=== PATIENT | male | born 1970 | race Caucasian/White ===

== ENCOUNTER 2024-03-15 10:29 | Outpatient (OUT) | payer OTHER, SELFPAY ==
[2024-03-15 10:55] LABS: Basophils Absolute Auto 0.1 10^3/uL (0.0-0.1); Eosinophils Absolute Auto 0.3 10^3/uL (0.0-0.7); Eosinophils Percent Auto 3.3 % (0.9-7.0); Hematocrit 45.3 % (42.0-54.0); Hemoglobin 14.8 g/dL (14.0-18.0); Immature Granulocytes Abs Auto 0.05 10^3/uL (0.00-0.03); Immature Granulocytes Pct Auto 0.6 % (0.0-0.5); Lymphocytes Percent Auto 23.1 % (20.5-60.0); Mean Corpuscular HGB Conc 32.7 g/dL (29.9-35.2); Mean Corpuscular Hemoglobin 29.7 pg (25.9-34.0); Mean Platelet Volume 11.2 fL (9.5-13.5); Monocytes Absolute Auto 0.6 10^3/uL (0.3-0.8); Monocytes Percent Auto 7.1 % (1.7-12.0); Neutrophils Absolute Auto 5.6 10^3/uL (1.4-6.5); Neutrophils Percent Auto 64.9 % (43.0-75.0); Platelet Count 248 10^3/uL (150-450); Red Blood Count 4.98 10^6/uL (4.70-6.10); White Blood Count 8.6 10^3/uL (4.0-11.0)
[2024-03-15 11:25] LABS: Alanine Aminotransferase 43 U/L (16-63); Albumin Globulin Ratio 0.9; Albumin Level 3.8 g/dL (3.4-5.0); Alkaline Phosphatase 113 U/L (46-116); Anion Gap 12.3; Aspartate Amino Transferase 24 U/L (15-37); BUN Creatinine Ratio 11.2; Bilirubin Total 0.7 mg/dL (0.2-1.0); Calcium 8.9 mg/dL (8.5-10.1); Carbon Dioxide 27.6 mmol/L (21.0-32.0); Chloride 105 mmol/L (98-107); Chol HDL Ratio 2.6; Cholesterol 115 mg/dL (<=200); Estimated GFR (African America >60 (>=60); Estimated GFR (Non-African Ame >60 (>=60); Glucose 111 mg/dL (74-106); HDL Cholesterol 45 mg/dL (40-60); LDL Cholesterol Calculated 57.8 mg/dL; Potassium 3.9 mmol/L (3.5-5.1); Sodium 141 mmol/L (136-145); Total Protein 7.8 g/dL (6.4-8.2); Triglycerides 61 mg/dL (<=150); VLDL CHOLESTEROL 12.2 mg/dL
== END 2024-03-15 10:30 | disposition home or self-care (01) ==
LOC: LAB 10:33
PROVIDERS: PCP Internal Medicine; Visit Provider Nurse Practitioner Family
DX: E78.2 Mixed hyperlipidemia (principal); I25.10 Atherosclerotic heart disease of native coronary artery without angina pectoris
CPT/HCPCS: 36415; 80053; 80061; 85025

== ENCOUNTER 2024-05-19 10:00 | Outpatient (OUT) | payer MEDICAID, SELFPAY ==
--- OUTSIDE RECORDS SUMMARY | 2024-05-19 10:16 | XMS_ITS | CCD ---
Author Organization [facility] Care Team Providers Care Stock Clerk Name Role Phone Wilson Mendenhall Admitting Unavailable Michelle Lopez Primary Care Unavailable Lam Nice Attending Unavailable Tyson, Mallika Admitting Unavailable Tyson, Mallika Attending Unavailable Gómez Cohn Primary Care Unavailable TRAV JONES Primary Care Unavailable TRAV JONES Referring Unavailable ELTAHAWY, EHAB A Admitting Unavailable ELTAHAWY, EHAB A Attending Unavailable Maryan Charles Unavailable DOMINIC, CARLITOS Admitting Unavailable DOMINIC, CARLITOS Attending Unavailable FAWWAD, MONTERO H Primary Care Unavailable DOMINIC, CARLITOS Admitting Unavailable DOMINIC, CARLITOS Attending Unavailable FAWWAD, MONTERO H Primary Care Unavailable DOMINIC, CARLITOS Consulting Unavailable FAWWAD, MONTERO H Admitting Unavailable FAWWAD, MONTERO H Attending Unavailable FAWWAD, MONTERO H Primary Care Unavailable FAWWAD, MONTERO H Consulting Unavailable FAWWAD, MONTERO H Primary Care Unavailable NOAH ., NICOLE Admitting Unavailable NOAH ., NICOLE Attending Unavailable NOAH ., NICOLE Consulting Unavailable FAWWAD, MONTERO H Admitting Unavailable FAWWAD, MONTERO H Attending Unavailable FAWWAD, MONTERO H Primary Care Unavailable DOMINIC, CARLITOS Admitting Unavailable DOMINIC, CARLITOS Attending Unavailable FAWWAD, MONTERO H Primary Care Unavailable FAWWAD, MONTERO Attending Unavailable EDY DOCKERY Attending Unavailable FAMANDOD, MONTERO Referring Unavailable CB, MONTERO Attending Unavailable LEN ENG Attending Unavailable FAMANDOD, MONTERO Referring Unavailable TAI SCHMITT Attending Unavailable DO Len Eng Attending Provider MD Simón Pinedo Primary Care Provider [phone] Shaikh Pinedo Primary Care Unavailable Len Eng Attending Unavailable Len Eng Admitting Unavailable Allergies Allergy Classification Reported Allergen(s) Allergy Type Date of Onset Reaction(s) Facility (1 source) No Known Medication Allergies; Translations: [No Known Medication Allergies] Propensity to adverse reactions (disorder) [facility] Repository Medications Current Medications Medication Drug Class(es) Dates Sig (Normalized) Sig (Original) [id number] 200 actuat albuterol 0.09 mg/actuat metered dose inhaler (1 source) beta2-Adrenergic Agonist Start: 3 Proventil HFA 108 (90 Base) MCG/ACT 2 puffs as needed Inhalation every 4 -6hrs Apr, Active aspirin 81 mg chewable tablet (1 source) Platelet Aggregation Inhibitor, Nonsteroidal Anti-inflammatory Drug take 1 tablet by mouth once daily Aspirin Low Dose 81 MG chew 1 (ONE) TABLET and swallow DAILY Oral for 20 Days Active atorvastatin 40 mg oral tablet (1 source) HMG-CoA Reductase Inhibitor take 1 tablet by mouth once daily Atorvastatin Calcium 40 MG TAKE 1 TABLET BY MOUTH DAILY Oral for 30 Days Active azithromycin 250 mg oral tablet (1 source) Macrolide Antimicrobial Start: 2 Azithromycin 250 MG 2 tablet on the first day, then 1 tablet daily for 4 days Orally Once a day for 5 day(s) Aug, Active methylPREDNISolone 4 mg oral tablet (1 source) Corticosteroid Start: 2 methylPREDNISolone 4 MG as directed Orally for daily dose take half with breakfast, half with dinner for 6 days Aug, Active 24 hr metoprolol succinate 25 mg extended release oral tablet (1 source) beta-Adrenergic Beth Metoprolol Succinate ER 25 MG Oral for 30 Days Active montelukast 10 mg oral tablet (1 source) Leukotriene Receptor Antagonist take 1 tablet by mouth once daily Montelukast Sodium 10 MG TAKE 1 TABLET BY MOUTH EVERY DAY Oral for 30 Days Active Completed/Discontinued Medications Medication Drug Class(es) Dates Sig (Normalized) Sig (Original) Naproxen (1 source) Nonsteroidal Anti-inflammatory Drug Aleve Not-Taking Problems Active Problems Problem Classification Problem Date Documented Date Episodic/Chronic Chronic obstructive pulmonary disease and bronchiectasis (1 source) Chronic obstructive lung disease; Translations: [Chronic obstructive pulmonary disease, unspecified] Chronic Coronary atherosclerosis and other heart disease (6 sources) Atherosclerotic heart disease of [place] coronary artery without angina pectoris; Translations: [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] Onset: 12-01-2022 Chronic Disorders of lipid metabolism (2 sources) Mixed hyperlipidemia; Translations: [Mixed hyperlipidemia] Onset: 03-15-2024 Chronic Immunizations and screening for infectious disease (2 sources) Contact with and (suspected) exposure to other viral communicable diseases; Translations: [Contact with and (suspected) exposure to other viral communicable diseases] Episodic Other screening for suspected conditions (not mental disorders or infectious disease) (2 sources) Encounter for screening for lipoid disorders; Translations: [Encounter for screening for diabetes mellitus] Onset: 12-02-2022 Episodic Other upper respiratory infections (1 source) Acute maxillary sinusitis, unspecified Episodic Residual codes; unclassified (4 sources) Obstructive sleep apnea (adult) (pediatric); Translations: [OBSTRUCTIVE SLEEP APNEA] Onset: 01-06-2022 Chronic Past or Other Problems Problem Classification Problem Date Documented Da te Episodic/Chronic Inflammation; infection of eye (except that caused by tuberculosis or sexually transmitteddisease) (4 sources) Other mucopurulent conjunctivitis, right eye; Translations: [OTH MUCOPURULNT CONJUNCTIVIT RT EYE] Onset: 04-12-2022 Episodic Other aftercare (1 source) [facility] (current) use of aspirin; Translations: [[facility]I CURRENT USE OF ASPIRIN] Onset: 04-21-2022 Episodic Other aftercare (1 source) Other middle or intermediate school principal (current) drug therapy; Translations: [OTH [facility] CURRENT DRUG THERAPY] Onset: 04-21-2022 Episodic Results Test Name Value Interpretation Reference Range Facility Office Visiton 03-15-2024 Follow-up visit [id number] China Olsen 1970 M Date Provider Department Center 03/15/2024 TAI GALEANO CARD [facility] No family history on file Level of Service:43013 LA OFFICE/OUTPATIENT ESTABLISHED MOD MDM 30 MIN Reason for Visit and Comments: Pre-op Exam [888377] Coronary Artery Disease [187] Hypertension [323760] Hyperlipidemia [182] Normal [facility] Orders Onlyon 08-03-2023 Orders Only [id number] China Olsen 1970 M Date Provider Department Center 08/03/2023 Kishor-LUCY AGUIAR [facility] No family history on file Normal [facility] GLYCOHEMOGLOBIN A1Con 2022 ADA RECOMMENDATION SEE BELOW Normal [facility] Comment on above: Result Comment: ADA RECOMMENDED LIMIT 4.0 - 6.0 ADA THERAPEUTIC TARGET < 7.0 ACTION SUGGESTED > 7.0 Performed By: #### A 1C #### [facility] [address] [address] [address] Summer Rasmussen Glucose [Mass/Vol] 123 mg/dL Normal [facility] Comment on above: Performed By: #### A 1C #### [facility] [address] [place] [address] Dr. Summer Rasmussen HbA1c (Bld) [Mass fraction] 5.9 % Normal 4.5-6.2 [facility] Comment on above: Performed By: #### A 1C #### [facility] [address] [address] [address] Summer Rasmussen LIPID PROFILEon 12-01-2022 CHOL-HDL RATIO NORM SEE BELOW Normal [facility] Comment on above: Result Comment: 3.3 - 4.4 LOW RISK 4.4 - 7.1 AVERAGE RISK 7.1 - 11.0 MODERATE RISK >11.0 HIGH RISK Performed By: #### L IPID #### [facility] [address] [address] [address] uSmmer Rasmussen Cholesterol [Mass/Vol] 136 mg/dL Normal <=200 [facility] Comment on above: Performed By: #### L IPID #### [facility] [address] [address] [address] Summer Rasmussen Cholesterol in HDL [Mass/Vol] 51 mg/dL Normal 40-60 [facility] Comment on above: Performed By: #### L IPID #### [facility] [address] [address] [address] Summer Rasmussen Cholesterol in LDL [Mass/Vol] 67.4 mg/dL Normal [facility] Comment on above: Performed By: #### L IPID #### [facility] [address] [address] [address] Summer Rasmussen Cholesterol.total/Ch olesterol in HDL [Mass ratio] 2.7 {ratio} Normal [facility] Comment on above: Performed By: #### L IPID #### [facility] [address] [place] [address] Dr. Summer Rasmussen HDL NORMAL > or = 60 mg/dl - LOW CARDIOVASCULAR RISK <40 mg/dl - HIGH CARDIOVASCULAR RISK Normal [facility] Comment on above: Performed By: #### L IPID #### [facility] [address] [address] [address] Summer Rasmussen LDL CALC NORMAL SEE BELOW Normal [facility] Comment on above: Result Comment: <100 mg/dl OPTIMAL 100 - 129 mg/dl NEAR OR ABOVE OPTIMAL 130 - 159 mg/dl BORDERLINE HIGH 160 - 189 mg/dl HIGH >190 mg/dl VERY HIGH Performed By: #### L IPID #### [facility] [address] [place] [address] Dr. Summer Rasmussen Triglyceride [Mass/Vol] 88 mg/dL Normal <=150 [facility] Comment on above: Performed By: #### L IPID #### [facility] [address] [place] [address] Dr. Summer Rasmussen VLDL CALC 17.6 mg/dL Normal [facility] Comment on above: Performed By: #### L IPID #### [facility] [address] [place] [address] Dr. Summer Rasmussen LIVER PROFILEon 12-01-2022 Albumin [Mass/Vol] 3.9 g/dL Normal 3.4-5.0 [facility] Comment on above: Performed By: #### L IVER #### [facility] [address] [place] [address] Dr. Summer Rasmussen Albumin/Globulin [Mass ratio] 0.8 {ratio} Normal [facility] Comment on above: Performed By: #### L IVER #### [facility] [address] [place] [address] Dr. Summer Rasmussen ALP [Catalytic activity/Vol] 93 U/L Normal 46-116 [facility] Comment on above: Performed By: #### L IVER #### [facility] [address] [place] [address] Dr. Summer Rasmussen ALT [Catalytic activity/Vol] 52 U/L Normal 16-63 [facility] Comment on above: Performed By: #### L IVER #### [facility] [address] [address] [address] Summer Rasmussen AST [Catalytic activity/Vol] 33 U/L Normal 15-37 [facility] Comment on above: Performed By: #### L IVER #### [facility] [address] [place] [address] Dr. Summer Rasmussen BILI, CONJUGATED 0.1 mg/dL Normal 0.0-0.2 [facility] Comment on above: Performed By: #### L IVER #### [facility] [address] [place] [address] Dr. Summer Rasmussen Bilirubin [Mass/Vol] 0.6 mg/dL Normal 0.2-1.0 [facility] Comment on above: Performed By: #### L IVER #### [facility] [address] [place] [address] Dr. Summer Rasmussen Globulin (S) [Mass/Vol] 4.6 g/dL Normal [facility] Comment on above: Performed By: #### L IVER #### [facility] [address] [place] [address] Dr. Summer Rasmussen Protein [Mass/Vol] 8.5 g/dL Critically high 6.4-8.2 [facility] Comment on above: Performed By: #### L IVER #### [facility] [address] [place] [address] Dr. Summer Rasmussen COVID Quick Testingon 2021 Result Negative [facility] Other Quick Fluon 09-02-2022 FLUAV Ab CF (S) [Titer] Negative [facility] Other FLUBV Ab CF (S) [Titer] Negative [facility] Other Cardiovascular Lab Reporton 11-30-2021 Cardiovascular Lab Report [facility] Patient Name: China Olsen [facility] MR #: [id number] Physician: Li Department of MD Kathy [facility] Service Date: 11/28/2021 Division of Birthdate: 1970 Cardiology Room #: [facility] Cardiovascular Services [facility] [address] [facility] [place] [address] Cardiovascular Laboratory Report PROCEDURES PERFORMED: 1. Coronary angiography. 2. Left heart catheterization. FINAL IMPRESSIONS: 1. 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 2. 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 3. Otherwise, patent coronary arteries. RECOMMENDATIONS: 1. Aspirin 81 mg lifelong. 2. Aggressive risk factor modification. 3. Optimization of medical management for CAD: beta beth, aspirin, high intensity statin. 4. Initiation of beta beth for myocardial bridging. 5. Avoid nitrates due to bridging. 6. Followup with me in Clinic. 7. Followup with PCP as scheduled. PROCEDURE IN DETAIL: After risks, benefits, and alternatives were explained, written informed consent was obtained. The patient was prepped and draped in the usual sterile fashion. Using 1% lidocaine solution, local infiltration of anesthesia was achieved over the right radial artery. Using a micropuncture kit, access to the right radial artery was obtained. Coronary angiography was performed using the JR5 and JL3.5 catheters. After reviewing the images, it was elected to conclude the procedure. Overall, the patient tolerated the procedure well. There were no overt complications. He was to be transferred to Recovery in stable condition. FINDINGS: HEMODYNAMICS: AO 101/73 (87). LV 106/3 (8). CORONARY ARTERIES: Left main coronary artery: This rises from the left coronary cusp. It bifurcates into the left anterior descending and left circumflex coronary arteries. This is patent and without significant stenosis. Left anterior descending: There appears to be myocardial bridging in the mid portion of the vessel. There is 20% stenosis near the site of bridging. Otherwise, patent coronary artery without significant stenosis. Left circumflex coronary artery: Patent, no significant stenosis. Right coronary artery: This is a dominant vessel giving rise to the posterior descending and posterolateral branches. This is patent and without any significant stenosis. INDICATIONS: Unstable angina, abnormal stress test. Electronically Signed by: Li Chavez MD 12/17/2021 10:41 A Li Chavez MD Date Dict: 11/29/2021/04:44 P/Li Chavez MD Date Trans: 11/30/2021 06:39 A/lenin [id number] cc: Trav Jones MD [address] [facility] [address] Normal [facility] Coding Summary.on 09-22-2018 Coding Summary. CODING DATE: 09/22/2018 FINAL [facility] STATUS: Home (Routine DC) PAYOR: Medicaid ADMIT DX: REASON FOR VISIT DX: R06.02 Shortness of breath FINAL DX: PRINCIPAL: J01.00 Acute maxillary sinusitis, unspecified SECONDARY: F17.210 Nicotine dependence, cigarettes, uncomplicated PROCEDURES DOCTOR NAME DATE NOTE: The code number assigned matches the documented diagnosis and / or procedure in the patient's chart. However, the narrative phrase printed from the coding software may appear abbreviated, or result in slightly different terminology. Coded By: Meredith Santoyo Date Saved: 09/22/2018 11:16 am Normal [facility] ED Note-Physicianon 09-22-19 ED Note-Physician Basic Information Time Seen: Yuri Turner PA-C 09/21/2018 12:33 Chief Complaint pt has complaints of chest congestion productive cough and sinus pressure History of Present Illness 48-year-old male presents to the ED for evaluation of a sinus infection for the last 7-10 days. The patient states that he has a history of asthma but has not been able to take his inhaler because he ran out and does not have the money for 1. He states he does have insurance now it should cover it. He states that he has no chest pains. He is a little bit of shortness of breath with coughing and exertion. He has no nausea or vomiting. No diarrhea or constipation. Review of Systems All Organ systems are reviewed. Pertinent positive and negative findings as mentioned in the HPI Physical Exam Vitals & Measurements T: 37.1 ?C (Oral) HR: 88(Peripheral) RR: 18 BP: 135/84 SpO2: 97% HT: 188 cm WT: 130.4 kg BMI: 36.89 Nurses note and vital signs reviewed and patient is not hypoxic. General: The patient appears well and in no apparent distress. Patient is resting comfortably on cart. Skin: Warm, dry, no pallor noted. There is no rash noted. Head: Normocephalic, atraumatic Eye: Normal conjunctiva Ears, Nose, Mouth, and Throat: oral mucosa is mildly dry. There is bilateral TM bulging without erythema. I notice clear fluid in both TMs. No perforation. Postnasal drip noted with mild pharyngeal erythema without exudate. Nasal congestion with purulent drainage. Handles secretions well. Uvula midline. Pressure over the maxillary sinuses bilaterally with postnasal drip in the posterior oropharynx Cardiovascular: Regular Rate and Rhythm Respiratory: Patient is in no distress, no accessory muscle use, lungs are clear to auscultation, no wheezing, rales or rhonchi. He did have a wet sounding frequent cough. Back: non-tender, no CVA tenderness bilaterally to percussion. GI: Normal bowel sounds, no tenderness to palpation, no masses appreciated. No rebound, guarding, or rigidity noted. Musculoskeletal: The patient has no evidence of calf tenderness, no pitting edema, symmetrical pulses noted bilaterally Neurological: A&O x4, normal speech Psychiatric: Cooperative Medical Decision Making The patient is a take medications as prescribed. Follow with primary care in 3-5 days. Return back if symptoms change or worsen. Symptoms have been for 7-10 days and getting worse therefore will treat with antibiotics. Oral steroids given for the asthma and he is to return back if any worsening symptoms including chest pain or shortness of breath. Patient is discharged home without questions. Assessment/Plan Acute maxillary sinusitis Orders: albuterol, 1 puff(s), Inhalation, QID for wheezing, 18 gram, Refill(s) 0, [facility] benzonatate, 200 mg = 1 cap(s), Oral, TID, X 7 day(s), # 21 cap(s), Refills(s) 0 doxycycline, 100 mg = 1 tab(s), Oral, BID, X 7 day(s), # 14 tab(s), Refills(s) 0 methylPREDNISolone, = 1 packet(s), Oral, As Directed, as directed on package labeling, X 6 day(s), # 21 tab(s), Refills(s) 0 Disposition Plan Patient Discharge Condition Stable Discharge Disposition Discharged home Discharge Prescription List Prescriptions benzonatate 200 mg oral capsule, 200 mg= 1 cap(s), Oral, TID doxycycline monohydrate 100 mg oral tablet, 100 mg= 1 tab(s), Oral, BID Medrol Dosepack 4 mg Tab, 1 packet(s), Oral, As Directed Ventolin HFA 90 mcg/inh Aerosol, 1 puff(s), Inhalation, QID, PRN Follow-up With When Contact Information Gómez Cohn In 3 days 09/24/[address] [address] Business (1) Additional Instructions: Patient Education Sinusitis, Adult Attestation The patient's care was supervised by Dr. Mehta including history, physical, medical decision making, and disposition. Teaching-Supervisory Addendum-Brief I participated in the following activities of this patients care: the medical history. I personally performed: supervision of the patient's care, the medical history, the physical exam, the medical decision making. The case was discussed with: the physician billing and accounting staff assistant, Yuri Turner PA-C. Procedures: I directly supervised the entire procedure. Evaluation and management service: I agree with the evaluation and management decisions made in this patient's care. Results interpretation: I agree with the study interpretation in this patient's care, I agree with the documentation of the study interpretation. Problem List/Past Medical History Ongoing Smoker Historical Headache Procedure/Surgical History None. Medications Inpatient No active inpatient medications Home Antivert 25 mg Tab, 25 mg= 1 tab(s), Oral, TID, PRN benzonatate 200 mg oral capsule, 200 mg= 1 cap(s), Oral, TID doxycycline monohydrate 100 mg oral tablet, 100 mg= 1 tab(s), Oral, BID Medrol Dosepack 4 mg Tab, 1 packet(s), Oral, As Directed naproxen, Oral Ventolin HFA 90 mcg/inh Aerosol, 1 puff(s), Inhalation, QID, PRN Allergies No Known Medication Allergies Social History Alcohol - Denies Alcohol Use, 06/11/2018 Substance Abuse - Denies Substance Abuse, 06/11/2018 Tobacco - Medium Risk, 06/11/2018 5-9 cigarettes (between 1/4 to 1/2 pack)/day in last 30 days Tobacco Use:. Cigarettes, 09/21/2018 Cigarettes, 06/11/2018 Lab Results No qualifying data available. Diagnostic Results No qualifying data available. Normal [facility] Comment on above: Result Comment: Elec tronically Signed By: Yuri Turner PA-C\.br\Date and Time Signed: 09/21/18 13:43 EST\.br\Electronically Co-Signed By: Mallika Mehta DO\.br\Date and Time Co-Signed: 09/22/18 15:25 EST ED Clinical Summaryon 2018 ED Clinical Summary [place] [id number] ED Clinical Summary Person Information Name: CHINA OLSEN [facility] Age: 48 Years : 1970 12:00 AM Sex: Male Language: Burkinan PCP: Gómez Cohn III, DO Marital Status: Single Phone: [phone] Visit Id: Visit Reason: Cough; Sinus Pain/Congestion; Rhinorrhoea; headache, drainage, chest congetion Speciality: Acuity: 4 Enc Type: Emergency Med Service: Emergency Arrival: 09/21/2018 12:06 PM Discharge: 09/21/2018 1:33 PM LOS: 000 01:27 Checkin: 09/21/2018 12:06 PM Checkout: 09/21/2018 1:33 PM Dispo Type: Home (Routine DC) EVENTS: Event Name Event Status Request Date/Time Start Date/Time Complete Date/Time Arrive Complete 09/21/2018 12:06 PM 09/21/2018 12:06 PM 09/21/2018 12:06 PM Document Home Meds Request 09/21/2018 12:06 PM Triage Complete 09/21/2018 12:06 PM 09/21/2018 12:19 PM 09/21/2018 12:19 PM Bed Assign Complete 09/21/2018 12:19 PM 09/21/2018 12:19 PM 09/21/2018 12:[address] Exam Complete 09/21/2018 12:19 PM 09/21/2018 12:33 PM 09/21/2018 12:33 PM RN Exam Complete 09/21/2018 12:19 PM 09/21/2018 12:46 PM 09/21/2018 12:46 PM Registration Complete 09/21/2018 12:33 PM 09/21/2018 12:53 PM 09/21/2018 12:[address] Exam Complete 09/21/2018 12:35 PM 09/21/2018 12:35 PM 09/21/2018 12:35 PM Reg Complete Request 09/21/2018 12:53 PM Discharge Complete 09/21/2018 1:23 PM 09/21/2018 1:33 PM 09/21/2018 1:33 PM Transfer Complete 09/21/2018 1:33 PM 09/21/2018 1:33 PM 09/21/2018 1:33 PM ADDRESS: [address] [place] [id number] PHYS DOC NOTES: MEDICAL INFORMATION: Prescriptions Given: Prescription Display benzonatate (benzonatate 200 mg oral capsule) 200 mg = 1 cap(s), Oral, TID, X 7 day(s), # 21 cap(s), Refills(s) 0 doxycycline (doxycycline monohydrate 100 mg oral tablet) 100 mg = 1 tab(s), Oral, BID, X 7 day(s), # 14 tab(s), Refills(s) 0 methylPREDNISolone (Medrol Dosepack 4 mg Tab) = 1 packet(s), Oral, As Directed, as directed on package labeling, X 6 day(s), # 21 tab(s), Refills(s) 0 PATIENT EDUCATION INFORMATION: Instructions: Sinusitis, Adult Follow up: With: Address: When: Gómez Cohn [address] [place] [address], [facility], [place] [address] Business (8) In 3 days 09/24/2018 DIAGNOSIS: Acute maxillary sinusitis Normal [facility] ED Patient Education Noteon 09-21-2018 ED Patient Education Note Allergy Sinusitis Sinusitis is redness, soreness, and inflammation of the paranasal sinuses. Paranasal sinuses are air pockets within the bones of your face (beneath the eyes, the middle of the forehead, or above the eyes). In healthy paranasal sinuses, mucus is able to drain out, and air is able to circulate through them by way of your nose. However, when your paranasal sinuses are inflamed, mucus and air can become trapped. This can allow bacteria and other germs to grow and cause infection. Sinusitis can develop quickly and last only a short time (acute) or continue over a long period (chronic). Sinusitis that lasts for more than 12 weeks is considered chronic. CAUSES Causes of sinusitis include: ? Allergies. ? Structural abnormalities, such as displacement of the cartilage that separates your nostrils (deviated septum), which can decrease the air flow through your nose and sinuses and affect sinus drainage. ? Functional abnormalities, such as when the small hairs (cilia) that line your sinuses and help remove mucus do not work properly or are not present. SIGNS AND SYMPTOMS Symptoms of acute and chronic sinusitis are the same. The primary symptoms are pain and pressure around the affected sinuses. Other symptoms include: ? Upper toothache. ? Earache. ? Headache. ? Bad breath. ? Decreased sense of smell and taste. ? A cough, which worsens when you are lying flat. ? Fatigue. ? Fever. ? Thick drainage from your nose, which often is green and may contain pus (purulent). ? Swelling and warmth over the affected sinuses. DIAGNOSIS Your health care provider will perform a physical exam. During the exam, your health care provider may: ? Look in your nose for signs of abnormal growths in your nostrils (nasal polyps). ? Tap over the affected sinus to check for signs of infection. ? View the inside of your sinuses (endoscopy) using an imaging device that has a light attached (endoscope). If your health care provider suspects that you have chronic sinusitis, one or more of the following tests may be recommended: ? Allergy tests. ? Nasal culture. A sample of mucus is taken from your nose, sent to a lab, and screened for bacteria. ? Nasal cytology. A sample of mucus is taken from your nose and examined by your health care provider to determine if your sinusitis is related to an allergy. TREATMENT Most cases of acute sinusitis are related to a viral infection and will resolve on their own within 10 days. Sometimes medicines are prescribed to help relieve symptoms (pain medicine, decongestants, nasal steroid sprays, or saline sprays). However, for sinusitis related to a bacterial infection, your health care provider will prescribe antibiotic medicines. These are medicines that will help kill the bacteria causing the infection. Rarely, sinusitis is caused by a fungal infection. In theses cases, your health care provider will prescribe antifungal medicine. For some cases of chronic sinusitis, surgery is needed. Generally, these are cases in which sinusitis recurs more than 3 times per year, despite other treatments. HOME CARE INSTRUCTIONS ? Drink plenty of water. Water helps thin the mucus so your sinuses can drain more easily. ? Use a humidifier. ? Inhale steam 3 to 4 times a day (for example, sit in the bathroom with the shower running). ? Apply a warm, moist washcloth to your face 3 to 4 times a day, or as directed by your health care provider. ? Use saline nasal sprays to help moisten and clean your sinuses. ? Take medicines only as directed by your health care provider. ? If you were prescribed either an antibiotic or antifungal medicine, finish it all even if you start to feel better. SEEK IMMEDIATE MEDICAL CARE IF: ? You have increasing pain or severe headaches. ? You have nausea, vomiting, or drowsiness. ? You have swelling around your face. ? You have vision problems. ? You have a stiff neck. ? You have difficulty breathing. MAKE SURE YOU: ? Understand these instructions. ? Will watch your condition. ? Will get help right away if you are not doing well or get worse. Document Released: 09/07/2006 Document Revised: 01/22/2015 Document Reviewed: 09/21/2012 ExitCare? Patient Information ?2015 [employer]. This information is not intended to replace advice given to you by your health care provider. Make sure you discuss any questions you have with your health care provider. Normal [facility] ED Patient Summaryon 019 ED Patient Summary [place] [id number] Patient Discharge Instructions Person Information Name: CHINA OLSEN Age: 48 Years Arrival Date: 09/21/2018 12:06 PM Discharge Diagnosis: Acute maxillary sinusitis Primary Care Physician: Gómez Cohn III, DO Provider Information Primary Provider: Mallika Mehta DO Advanced Instructor Of Spanish:Yuri Turner PA-C The exam and treatment you received in the Emergency Department were for an urgent problem and are not intended as complete care. It is important that you follow up with a doctor, nurse practitioner, or physician?s billing and accounting staff assistant for ongoing care. If your symptoms become worse or you do not improve as expected and you are unable to reach your usual health care provider, you should return to the Emergency Department. We are available 24 hours a day. CHINA OLSEN has been given the following list of patient education materials, prescriptions and follow-up instructions: Follow-up Instructions: With: Address: When: Gómez Cohn [address] [place] [id number] [facility] () In 3 days 09/24/2018 In the event that this physician does not participate in your insurance network, please consult with your insurance company to find a nearby participating provider. Patient Education Materials: Sinusitis, Adult A MESSAGE TO ALL PATIENTS REGARDING OPIOIDS PRESCRIPTION OPIOIDS: WHAT YOU NEED TO KNOW Prescription opioids can be used to help relieve oxwgnzpo-nj-msytlz pain and are often prescribed following a surgery or injury, or for certain health conditions. These medications can be an important part of the treatment but also come with serious risks. It is important to work with your healthcare provider to make sure you are getting the safest, most effective care. WHAT ARE THE RISKS AND SIDE EFFECTS OF OPIOID USE? Prescription opioids carry serious risks of addiction and overdose, especially with prolonged use. An opioid overdose, often marked by slowed breathing, can cause sudden . The use of prescription opioids can have a number of side effects as well, even when taken as directed: ? Tolerance?meaning you might need to take more of the medication for the same pain relief ? Physical dependence?meaning you have symptoms of withdrawal when a medication is stopped ? Increased sensitivity to pain ? Constipation ? Nausea, vomiting, and dry mouth ? Sleepiness and dizziness ? Confusion ? Depression ? Low levels of testosterone that can result in lower sex drive, energy, and strength ? Itching and sweating RISKS ARE GREATER WITH: ? History of drug misuse, substance use disorder, or overdose ? Mental health conditions (such as depression or anxiety) ? Sleep apnea ? Older age (65 years and older) ? Avoid alcohol while taking prescription opioids. Also, unless specifically advised by your health care provider, medications to avoid include: ? Benzodiazepines (such as Xanax or Valium) ? Muscle relaxants (such as Soma or Flexeril) ? Hypnotics (such as Ambien or Lunesta) ? Other prescription opioids KNOW YOUR OPTIONS Talk to your health care provider about ways to manage your pain that don?t involve prescription opioids. Some of these options may actually work better and have fewer risks and side effects. Options may include: ? Pain relievers such as acetaminophen, ibuprofen, and naproxen ? Some medication that are also used for depression or seizures ? Physical therapy and exercise ? Cognitive behavioral therapy, a psychological, goal-directed approach, in which patients learn how to modify physical, behavioral, and emotional triggers of pain and stress. IF YOU ARE PRESCRIBED OPIOIDS FOR PAIN: ? Never take opioids in greater amounts or more often than prescribed. ? Follow up with your primary health care provider. o Work together to create a plan on how to manage your pain. o Talk about ways to help manage your pain that don?t involve prescription opioids. o Talk about any and all concerns and side effects. ? Help prevent misuse and abuse o Never sell or share prescription opioids. o Never use another person?s prescription opioids. ? Store prescription opioids in a secure place and out of reach of others (this may include visitors, children, friends, and family). ? Safely dispose of unused prescription opioids: Find your community drug take-back program or your pharmacy mail-back program, or flush them down the toilet, following guidance from the Food and Drug Administration (www.fda.gov/Drugs/R esourcesForYou). ? Visit www.cdc.gov/drugover dose to learn about the risks of opioids abuse and overdose. ? If you believe you may be struggling with addiction, tell your health care provider and ask for guidance or call SAMHSA?S National Helpline at 1-802-218-OKGY. v Source: [place] Department of Health and Human Services/Center for Disease Control & Prevention [facility] Medications Given: Medication Dose Route No medications found. Medication Information: New Medications Printed Prescriptions benzonatate (benzonatate 200 mg oral capsule) 1 Capsules By Mouth 3 times a day for 7 Days. Refills: 0. doxycycline (doxycycline monohydrate 100 mg oral tablet) 1 Tabs By Mouth 2 times a day for 7 Days. Refills: 0. methylPREDNISolone (Medrol Dosepack 4 mg Tab) 1 Packets By Mouth As Directed for 6 Days. as directed on package labeling. Refills: 0. Medications to Continue with No Changes Other Medications meclizine (Antivert 25 mg Tab) 1 Tabs By Mouth 3 times a day as needed for dizziness. Refills: 0. naproxen By Mouth. Comment: Pharmacy Information: Thank you for choosing [facility] Patient Education Materials: Sinusitis Sinusitis is redness, soreness, and inflammation of the paranasal sinuses. Paranasal sinuses are air pockets within the bones of your face (beneath the eyes, the middle of the forehead, or above the eyes). In healthy paranasal sinuses, mucus is able to drain out, and air is able to circulate through them by way of your nose. However, when your paranasal sinuses are inflamed, mucus and air can become trapped. This can allow bacteria and other germs to grow and cause infection. Sinusitis can develop quickly and last only a short time (acute) or continue over a long period (chronic). Sinusitis that lasts for more than 12 weeks is considered chronic. CAUSES Causes of sinusitis include: ? Allergies. ? Structural abnormalities, such as displacement of the cartilage that separates your nostrils (deviated septum), which can decrease the air flow through your nose and sinuses and affect sinus drainage. ? Functional abnormalities, such as when the small hairs (cilia) that line your sinuses and help remove mucus do not work properly or are not present. SIGNS AND SYMPTOMS Symptoms of acute and chronic sinusitis are the same. The primary symptoms are pain and pressure around the affected sinuses. Other symptoms include: ? Upper toothache. ? Earache. ? Headache. ? Bad breath. ? Decreased sense of smell and taste. ? A cough, which worsens when you are lying flat. ? Fatigue. ? Fever. ? Thick drainage from your nose, which often is green and may contain pus (purulent). ? Swelling and warmth over the affected sinuses. DIAGNOSIS Your health care provider will perform a physical exam. During the exam, your health care provider may: ? Look in your nose for signs of abnormal growths in your nostrils (nasal polyps). ? Tap over the affected sinus to check for signs of infection. ? View the inside of your sinuses (endoscopy) using an imaging device that has a light attached (endoscope). If your health care provider suspects that you have chronic sinusitis, one or more of the following tests may be recommended: ? Allergy tests. ? Nasal culture. A sample of mucus is taken from your nose, sent to a lab, and screened for bacteria. ? Nasal cytology. A sample of mucus is taken from your nose and examined by your health care provider to determine if your sinusitis is related to an allergy. TREATMENT Most cases of acute sinusitis are related to a viral infection and will resolve on their own within 10 days. Sometimes medicines are prescribed to help relieve symptoms (pain medicine, decongestants, nasal steroid sprays, or saline sprays). However, for sinusitis related to a bacterial infection, your health care provider will prescribe antibiotic medicines. These are medicines that will help kill the bacteria causing the infection. Rarely, sinusitis is caused by a fungal infection. In theses cases, your health care provider will prescribe antifungal medicine. For some cases of chronic sinusitis, surgery is needed. Generally, these are cases in which sinusitis recurs more than 3 times per year, despite other treatments. HOME CARE INSTRUCTIONS ? Drink plenty of water. Water helps thin the mucus so your sinuses can drain more easily. ? Use a humidifier. ? Inhale steam 3 to 4 times a day (for example, sit in the bathroom with the shower running). ? Apply a warm, moist washcloth to your face 3 to 4 times a day, or as directed by your health care provider. ? Use saline nasal sprays to help moisten and clean your sinuses. ? Take medicines only as directed by your health care provider. ? If you were prescribed either an antibiotic or antifungal medicine, finish it all even if you start to feel better. SEEK IMMEDIATE MEDICAL CARE IF: ? You have increasing pain or severe headaches. ? You have nausea, vomiting, or drowsiness. ? You have swelling around your face. ? You have vision problems. ? You have a stiff neck. ? You have difficulty breathing. MAKE SURE YOU: ? Understand these instructions. ? Will watch your condition. ? Will get help right away if you are not doing well or get worse. Document Released: 09/07/2006 Document Revised: 01/22/2015 Document Reviewed: 09/21/2012 ExitCare? Patient Information ?2014 [employer]. This information is not intended to replace advice given to you by your health care provider. Make sure you discuss any questions you have with your health care provider. PRETTY Minor CHRISTOPHER D , have received the following patient education materials/instructio ns and have verbalized understanding: Patient Education Materials: Sinusitis, Adult Follow-up Instructions: With: Address: When: Gómez Cohn [address] [place] [address], [place] [address] [facility] () In 3 days 09/24/2018 Prescriptions: [benzonatate (benzonatate 200 mg oral capsule)] [doxycycline (doxycycline monohydrate 100 mg oral tablet)] [methylPREDNISolone (Medrol Dosepack 4 mg Tab)] Patient Signature Date Clinician/Nurse Signature Date 09/21/18 13:33:41 Normal [facility] Coding Summary.on 06-14-2018 Coding Summary. CODING DATE: 06/14/2018 FINAL [facility] STATUS: Home (Routine DC) PAYOR: Self Pay APC DESCRIPTION 5023 CT and CTA with Contrast Composite 6846 Level 1 Imaging without Contrast 0547 Level 5 Type A ED Visits ADMIT DX: REASON FOR VISIT DX: R42 Dizziness and giddiness FINAL DX: PRINCIPAL: H81.10 Benign paroxysmal vertigo, unspecified ear SECONDARY: PYMT PROC APC STAT DESCRIPTION DOCTOR NAME DATE NOTE: The code number assigned matches the documented diagnosis and / or procedure in the patient's chart. However, the narrative phrase printed from the coding software may appear abbreviated, or result in slightly different terminology. Revised Coded By: Isabel Kim Revised Date Saved: 06/14/2018 08:59 am Normal [facility] Auto Diffon 06-11-2018 Basophils #/vol (Bld) 1.1 % Normal 0.0-2.0 [facility] Comment on above: Order Comment: Order Added by Discern Expert. Performed By: #### 2 003832, 0571788, 2434561, 75361331, 2786092, 38791623, [id number] #### [facility] [address] [place] [address] Basophils/Leukocytes Auto Pure number fraction (Bld) 0.1 E9/L Normal 0.0-0.2 [facility] Comment on above: Order Comment: Order Added by Discern Expert. Performed By: #### 2 253378, 1076908, 4689493, 17962936, 7802985, 46034807, 85811372 #### [facility] [address] [place] [address] Eosinophils/100 WBC (Bld) 5.2 % Normal 0.0-8.0 [facility] Comment on above: Order Comment: Order Added by Discern Expert. Performed By: #### 2 658806, 1745702, 8598081, 08449338, 7468425, 17821779, 24886429 #### [facility] [address] [place] [address] Eosinophils/Leukocyt es Auto Pure number fraction (Bld) 0.4 E9/L Normal 0.0-0.5 [facility] Comment on above: Order Comment: Order Added by Discern Expert. Performed By: #### 2 077540, 4672322, 0493869, 53842258, 1498430, 31506543, 31379719 #### [facility] [address] [place] [address] Lymphocytes/100 WBC (Bld) 27.8 % Normal 14.0-50.0 [facility] Comment on above: Order Comment: Order Added by Discern Expert. Performed By: #### 2 448472, 3217000, 5881822, 12016514, 6599793, 68345640, 64574167 #### [facility] [address] [place] [address] Lymphocytes/Leukocyt es Auto Pure number fraction (Bld) 2.4 E9/L Normal 1.0-4.0 [facility] Comment on above: Order Comment: Order Added by Discern Expert. Performed By: #### 2 655520, 7382005, 4692744, 42549701, 7511165, 69517657, 23077014 #### [facility] [address] [place] [address] Monocytes/100 WBC (Bld) 8.2 % Normal 4.0-14.0 [facility] Comment on above: Order Comment: Order Added by Discern Expert. Performed By: #### 2 352191, 6424931, 6384945, 80981576, 4242049, 82834298, 90968050 #### [facility] [address] [place] [address] Monocytes/Leukocytes Auto Pure number fraction (Bld) 0.7 E9/L Normal 0.2-1.0 [facility] Comment on above: Order Comment: Order Added by Discern Expert. Performed By: #### 2 738753, 5162325, 6026140, 14913475, 8498781, 80179760, 91161499 #### [facility] [address] [place] [address] Neutrophils/100 WBC (Bld) 57.7 % Normal 36.0-75.0 [facility] Comment on above: Order Comment: Order Added by Discern Expert. Performed By: #### 2 763074, 5278927, 6487663, 39019862, 8110674, 25193201, 09933551 #### [facility] [address] [place] [address] Neutrophils/Leukocyt es Auto Pure number fraction (Bld) 4.9 E9/L Normal 2.0-7.5 [facility] Comment on above: Order Comment: Order Added by Discern Expert. Performed By: #### 2 749191, 0832308, 8160435, 50928122, 2401451, 10891299, 80566617 #### [facility] [address] [place] [address] BNPon 06-11-2018 Natriuretic peptide B mass conc (Bld) 15 pg/mL Normal 5-80 [facility] Comment on above: Performed By: #### 2 977447, 0487741, 5774041, 94966734, 5222838, 28056175, 10896678 #### [facility] [address] [place] [address] CBC w/ Auto Diffon 8 Erythrocyte distribution width Ratio (RBC) 13.5 % Normal 10.9-14.2 [facility] Comment on above: Performed By: #### 2 292880, 2557093, 9280770, 48949190, 6361593, 38427813, 71828587 #### [facility] [address] [place] [address] Hematocrit Volume Fraction (Bld) 43.5 % Normal 37.7-49.0 [facility] Comment on above: Performed By: #### 2 335943, 8968062, 3741784, 64987983, 6762148, 05655975, 44283184 #### [facility] [address] [place] [address] Hemoglobin mass conc (Bld) 15.3 g/dL Normal 13.5-17.5 [facility] Comment on above: Performed By: #### 2 874794, 2034619, 2320590, 21170944, 0573643, 44660117, 36225745 #### [facility] [address] [place] [address] MCH Entitic mass (RBC) 30.6 pg Normal 27.0-34.0 [facility] Comment on above: Performed By: #### 2 265768, 1668382, 8246665, 91883700, 0317722, 72960298, 55024317 #### [facility] [address] [place] [address] MCHC mass conc (RBC) 35.2 g/dL Normal 31.4-39.3 [facility] Comment on above: Performed By: #### 2 078707, 5418608, 0938137, 13556810, 2898973, 27180790, 46080965 #### [facility] [address] [place] [address] MCV Entitic volume (RBC) 87.0 fL Normal 80.0-100.0 [facility] Comment on above: Performed By: #### 2 091055, 1680033, 3443269, 57565495, 1533229, 43121706, 20353906 #### [facility] [address] [place] [address] Platelet mean volume Entitic volume (Bld) 9.2 fL Normal 6.4-10.8 [facility] Comment on above: Performed By: #### 2 471449, 5788875, 4869271, 23871798, 8342774, 96361010, 63757453 #### [facility] [address] [place] 0350557 Platelets #/vol (Bld) 205.0 E9/L Normal 150.0-500.0 [facility] Comment on above: Performed By: #### 2 522716, 7085264, 7606149, 75298565, 7477143, 97079033, 18897914 #### [facility] [address] [place] [address]350557 RBC #/vol (Bld) 5.0 E12/L Normal 4.3-5.9 [facility] Comment on above: Performed By: #### 2 405435, 1436827, 5363253, 21147410, 6647585, 91149163, 44287644 #### [facility] [address] [place] [address]350557 WBC corrected for nucl RBC Auto #/vol (Bld) 8.5 E9/L Normal 4.0-11.0 [facility] Comment on above: Performed By: #### 2 777223, 7426154, 4296597, 30754481, 6391301, 64891306, 22640485 #### [facility] [address] [place] [address] CMPon 06-11-2018 Albumin mass conc 4.1 g/dL Normal 3.3-5.0 [facility] Comment on above: Performed By: #### 2 387317, 5554499, 0097448, 74453597, 9377427, 00625004, 35470070 #### [facility] [address] [place] [address] Albumin mass conc 1.4 g/dL Normal 1.1-2.2 [facility] Comment on above: Performed By: #### 2 415401, 9912697, 5564739, 66792190, 1721638, 39161782, 30954886 #### [facility] [address] [place] [address] ALP enzyme act/vol 69 Int._Unit/L Normal 21-98 [facility] Comment on above: Performed By: #### 2 551062, 4114307, 8446149, 36136772, 0915463, 10660766, 90931063 #### [facility] [address] [place] [address] ALT No additional P-5'-P enzyme act/vol 39 Int._Unit/L Normal 6-46 [facility] Comment on above: Performed By: #### 2 270890, 9490106, 1561694, 49314480, 9557973, 76439044, 34034767 #### [facility] [address] [place] [address] AST enzyme act/vol 29 Int._Unit/L Normal 5-43 [facility] Comment on above: Performed By: #### 2 388379, 5399605, 9192846, 72675005, 6045509, 18767871, 79677961 #### [facility] [address] [place] [address] Bilirubin mass conc 0.7 mg/dL Normal 0.0-1.1 [facility] Comment on above: Performed By: #### 2 956825, 1468400, 6193863, 21864538, 0022842, 46752474, 88620504 #### [facility] [address] [place] [address] Creatinine mass conc 0.7 mg/dL Normal 0.5-1.3 [facility] Comment on above: Performed By: #### 2 218608, 1196611, 2555136, 66443703, 4281111, 80050354, 31819689 #### [facility] [address] [place] [address] Globulin mass conc (S) 3.0 g/dL Normal 1.4-4.0 [facility] Comment on above: Performed By: #### 2 803356, 5983630, 4020316, 21484830, 8910991, 14490398, 18991137 #### [facility] [address] [place] [address] Protein mass conc 7.1 g/dL Normal 6.0-7.8 [facility] Comment on above: Performed By: #### 2 033811, 7871527, 0524729, 69954643, 3129509, 65599205, 87541081 #### [facility] [address] [place] [address] Urea nitrogen mass conc 12 mg/dL Normal 5-21 [facility] Comment on above: Performed By: #### 2 414459, 1479444, 7641322, 54096887, 4442754, [id number], [id number] #### [facility] [address] [place] [address] Urea nitrogen/Creatinine mass ratio 17 No Units Normal 10-20 [facility] Comment on above: Performed By: #### 2 [id number], [id number], [id number], [id number], [id number], [id number], [id number] #### [facility] [address] [place] [address] Anion gap molar conc 9 mmol/L Normal 6-16 [facility] Comment on above: Performed By: #### 2 490909, 2402485, 0679148, [id number], [id number], [id number], [id number] #### [facility] [address] [place] [address] Calcium mass conc 8.9 mg/dL Normal 8.9-11.1 [facility] Comment on above: Performed By: #### 2 379853, [id number], 8623302, [id number], 4312258, [id number], [id number] #### [facility] [address] [place] [address] Chloride molar conc 109 mmol/L Normal 101-111 [facility] Comment on above: Performed By: #### 2 492429, [id number], 5235863, [id number], [id number], [id number], [id number] #### [facility] [address] [place] [address] CO2 molar conc 25 mmol/L Normal 21-31 [facility] Comment on above: Performed By: #### 2 713944, 3036037, 2361103, [id number], 7175535, [id number], [id number] #### [facility] [address] [place] [address] Glucose mass conc 102 mg/dL Normal 55-199 [facility] Comment on above: Result Comment: If t his glucose result represents a fasting glucose, interpretation should refer to the following reference range: 55-99 mg/dL Performed By: #### 2 505582, 9811205, 0872658, 12973117, 8701139, [id number], [id number] #### [facility] [address] [place] [address] Potassium molar conc 3.5 mmol/L Normal 3.5-5.3 [facility] Comment on above: Performed By: #### 2 535297, 2592634, 8399846, [id number], 1490671, [id number], [id number] #### [facility] [address] [place] [address] Sodium molar conc 139 mmol/L Normal 135-145 [facility] Comment on above: Performed By: #### 2 298665, 3812603, 7990196, 26214202, 5507500, [id number], [id number] #### [facility] [address] [place] [address] CTA Headon 06-11-2018 CTA Head Exam Date/Time: 06/11/2018 07:01 EDT Reason for Exam: Cerebral vascular disease Report Please see CTA neck report FINAL REPORT Dictated: 06/11/2018 9:45 am Addy Licea MD Signed (Electronic Signature): 06/11/2018 9:45 am Signed by: Addy Licea MD Transcribed by: ARTIE Technologist: HUSSEIN Technical Comments GFR (mL/min/1/73m2) na Contrast: Isovue 370 Contrast amount in ml's: 100 Normal [facility] CTA Neckon 06-11-2018 CTA Neck Exam Date/Time: 06/11/2018 07:01 EDT Reason for Exam: Vascular insufficiency Report IMPRESSION: NEGATIVE STUDY. NO EVIDENCE OF SIGNIFICANT STENOSIS. NO ACUTE PROCESS IN THE BRAIN. CLINICAL HISTORY: Vascular insufficiency. Dizziness. Headache posteriorly. COMPARISON: None. COMMENT: Axial images were obtained after the rapid injection of IV contrast with narrow collimation and reconstructed at a narrow interval. Coronal and sagittal reconstructions were performed. On the PACS, images were reviewed in cine display. 3D MIP postprocessed images were obtained.\X09\ The common carotid arteries, carotid bifurcations, and internal and external carotid arteries in the neck bilaterally are normal in appearance. The right and left subclavian arteries are normal. The vertebral arteries are normal in appearance. There is no evidence of signigicant stenosis. No acute process in the brain. Incidental note made of inflammation in the right ethmoid air cells. There is a scalp inclusion cyst overlying the right frontal bone. Degenerative changes overlie the cervical spine. All CT scans at this facility use dose modulation, iterative reconstruction, and/or weight based dosing when appropriate to reduce radiation dose to as low as reasonably achievable. Estimation of carotid stenosis is based on NASCET criteria. FINAL REPORT Dictated: 06/11/2018 9:44 am Addy Licea MD Signed (Electronic Signature): 06/11/2018 9:44 am Signed by: Addy Licea MD Transcribed by: ARTIE Technologist: HUSSEIN Technical Comments GFR (mL/min/1/73m2) >60 Contrast: Isovue 370 Contrast amount in ml's: 100 Normal [facility] ED Clinical Summaryon 2017 ED Clinical Summary [place] [address] ED Clinical Summary Person Information Name: CHINA OLSEN Raysa/[facility] Age: 47 Years : 1970 12:00 AM Sex: Male Language: Burkinan PCP: Michelle Lopez DO Marital Status: Single Visit Id: Visit Reason: Nausea; Neck pain; Dizziness; TROUBLE BREATHING Speciality: Acuity: 3 Enc Type: Emergency Med Service: Emergency Arrival: 06/11/2018 5:58 AM Discharge: 06/11/2018 8:08 AM LOS: 000 02:10 Checkin: 06/11/2018 5:58 AM Checkout: 06/11/2018 8:08 AM Dispo Type: Home (Routine DC) EVENTS: Event Name Event Status Request Date/Time Start Date/Time Complete Date/Time Arrive Complete 06/11/2018 5:58 AM 06/11/2018 5:58 AM 06/11/2018 5:58 AM Document Home Meds Complete 06/11/2018 5:58 AM 06/11/2018 6:34 AM 06/11/2018 6:34 AM Triage Complete 06/11/2018 5:58 AM 06/11/2018 6:06 AM 06/11/2018 6:[address] Exam Complete 06/11/2018 6:01 AM 06/11/2018 6:01 AM 06/11/2018 6:01 AM Registration Complete 06/11/2018 6:01 AM 06/11/2018 6:01 AM 06/11/2018 7:14 AM Bed Assign Complete 06/11/2018 6:01 AM 06/11/2018 6:01 AM 06/11/2018 6:01 AM RN Exam Complete 06/11/2018 6:01 AM 06/11/2018 6:34 AM 06/11/2018 6:34 AM EKG Complete 06/11/2018 6:05 AM 06/11/2018 6:13 AM Pending Labs Complete 06/11/2018 6:09 AM 06/11/2018 7:05 AM Lab Complete 06/11/2018 6:09 AM 06/11/2018 6:59 AM X-Ray Complete 06/11/2018 6:09 AM 06/11/2018 7:01 AM 06/11/2018 7:[address] Complete 06/11/2018 6:09 AM 06/11/2018 6:42 AM 06/11/2018 7:01 AM Pending Labs Complete 06/11/2018 6:30 AM 06/11/2018 6:30 AM 06/11/2018 6:59 AM Lab Complete 06/11/2018 6:30 AM 06/11/2018 6:30 AM 06/11/2018 6:59 AM Pending Labs Complete 06/11/2018 6:34 AM 06/11/2018 6:34 AM 06/11/2018 6:34 AM Pending Labs Complete 06/11/2018 6:34 AM 06/11/2018 6:34 AM 06/11/2018 6:34 AM Lab Complete 06/11/2018 6:34 AM 06/11/2018 6:34 AM 06/11/2018 6:34 AM Pending Labs Complete 06/11/2018 6:35 AM 06/11/2018 6:35 AM 06/11/2018 6:35 AM Wet Read Request 06/11/2018 7:02 AM Reg Complete Request 06/11/2018 7:14 AM Discharge Complete 06/11/2018 7:54 AM 06/11/2018 8:09 AM 06/11/2018 8:09 AM Transfer Complete 06/11/2018 8:09 AM 06/11/2018 8:09 AM 06/11/2018 8:09 AM ADDRESS: [address] [place] [address] [address] [place] [id number] PHYS DOC NOTES: Addendum by Lam Nice MD on June 11, 2018 07:49:04 EDT MEDICAL INFORMATION: Prescriptions Given: Prescription Display meclizine (Antivert 25 mg Tab) 25 mg = 1 tab(s), Oral, TID, PRN for dizziness, # 15 tab(s), Refills(s) 0 Home Meds Display naproxen Oral, Refills(s) 0 PATIENT EDUCATION INFORMATION: Instructions: Vertigo, Ixtk-gc-[id number] Follow up: With: Address: When: Michelle Lopez DO [address], [facility] [address] [place] [address] Within 3 to 5 days DIAGNOSIS: 1:Benign positional vertigo Normal [facility] ED Note-Physicianon 06-11-20 18 ED Note-Physician Basic Information Time Seen: Abdirashid PATEL, Wilson Sigala 06/11/2018 06:01 HISTORY OF PRESENT ILLNESS: No significant past medical history other than smoking and obesity presents for chief complaint of dizziness. Patient states he's had dizziness that he states is like being on a cloud and euphoric . Patient states he's had this intermittently for the past month. It is worse with turning his head left or right. Is associated with symptoms of lightheadedness and shortness of breath when turning his head or taking a deep breath. He denies any chest pain or abdominal pain. No back pain. No numbness or tingling or weakness. No difficulty speaking. No double vision. No passing out. No dysarthria or dysphagia. Severity is moderate. Worse with turning his head left or right. Timing is one month. Course is intermittent. Context is no history of coronary artery disease ED Caveat: [none] ROS *see ED Caveat Gen: No fever, no chills CV: No CP, no palpitations Resp: no respiratory distress GI: No V/D, no abd pain : No dysuria, no increased frequency Skin: No rash, no purulent lesions Eyes: No blurry vision, No double vision MSK: No back pain, no joint pain Neuro: No MARTINEZ, no sensation changes Psych: No SI/HI Allergies -reviewed PMH -See HPI Social History -No daily drinking, no IV drugs PHYSICAL EXAM Gen: Alert, no acute distress Skin: Warm, no rashes Head: Normocephalic, atraumatic Neck: No midline tenderness, no nuchal rigidity Eye: EOMI, PERRLA, normal conjunctiva ENT: Mucous membranes moist, no pharyngeal erythema CV: Normal rate, no rubs Resp: Respirations unlabored, lungs clear to auscultation GI: Soft, non distended, no large abdominal masses, non tender MSK: No midline back pain, no large joint effusions Neuro: Alert and oriented, no focal neurological deficits observed, no dysmetria, no dysarthria, no dysphasia, 5 out of 5 strength in the upper and lower extremities, no visual field cuts, no pronator drift, cranial nerves grossly intact, normal gait observed, Psych: Cooperative, appropriate mood and affect MEDICAL DECISION MAKING Differential Diagnosis: - Consideration is given for CVA, basilar insufficiency, dissection, ACS, pulmonary embolism. Impression/Plan: -Clinically most consistent with benign etiology of patient's symptoms. His symptoms do not fit any life-threatening clinical picture that I am aware of. However given his age and smoking history we'll evaluate for possible basilar insufficiency. However clinically of low suspicion at this time. If all workup is unremarkable and patient is feeling better will be safe for discharge home. Reevaluation/Convers ations on care: - Patient signed out to oncoming team to follow-up on laboratory testing imaging and final disposition. I anticipate if all workup is unremarkable patient will be sent for discharge home Dx - dizziness Wilson Mendenhall MD, [facility] Emergency Medicine Attending Questions? Please contact my cell phone anytime. *This charting supersedes any ED resident or staff charting and was written using speech recognition software Chief Complaint Pt presents to ED with dizziness, light headedness that has been going on for about 1 month now. Reports neck and eye pressure when he turns his head back and forth. Also reports stomach is upset, nauseated. Physical Exam Vitals & Measurements T: 37.2 ?C (Oral) HR: 88(Peripheral) RR: 20 BP: 122/88 SpO2: 95% HT: 188 cm Assessment/Plan Ordered: B-Type Natriuretic Peptide CBC w/ Auto Diff Comprehensive Metabolic Panel CTA Head CTA Neck Magnesium Level Troponin 0 Hr. XR Chest 2 Views Disposition Plan Discharge Prescription List Prescriptions No active prescription medications Follow-up No qualifying data available Problem List/Past Medical History Ongoing No qualifying data Historical No qualifying data Medications Inpatient No active inpatient medications Home No active home medications Allergies No Known Medication Allergies Lab Results No qualifying data available. Diagnostic Results No qualifying data available. The patient's CTA head and CTA neck were both unremarkable. EKG was within normal limits. Blood work is within normal limits. I discussed the patient symptoms and clearly there is an element of slight nausea associated with head movement and is feeling of dizziness. It may be that this dizziness is more of a vertiginous feeling. I discussed this with the patient. We will try Antivert over the weekend one tablet 3 times a day and then have him follow up with an on-call physician next week to see if in fact there is a positive response. Diagnosis is Positional vertigo. Prescription for Antivert 25 mg 3 times a day 15 tablets. Normal [facility] Comment on above: Result Comment: Elec tronically Signed By: Tex PATEL, Lam\.br\Date and Time Signed: 06/11/18 07:50 EDT ED Patient Education Noteon 06-11-2018 ED Patient Education Note Family Medicine Vertigo Vertigo means you feel like you are moving when you are not. Vertigo can make you feel like things around you are moving when they are not. This problem often goes away on its own. HOME CARE ? Follow your doctor's instructions. ? Avoid driving. ? Avoid using heavy machinery. ? Avoid doing any activity that could be dangerous if you have a vertigo attack. ? Tell your doctor if a medicine seems to cause your vertigo. GET HELP RIGHT AWAY IF: ? Your medicines do not help or make you feel worse. ? You have trouble talking or walking. ? You feel weak or have trouble using your arms, hands, or legs. ? You have bad headaches. ? You keep feeling sick to your stomach (nauseous) or throwing up (vomiting). ? Your vision changes. ? A family member notices changes in your behavior. ? Your problems get worse. MAKE SURE YOU: ? Understand these instructions. ? Will watch your condition. ? Will get help right away if you are not doing well or get worse. Document Released: 06/16/2009 Document Revised: 11/29/2012 Document Reviewed: 03/25/2012 ExitCare? Patient Information ?2014 Lessons Only. This information is not intended to replace advice given to you by your health care provider. Make sure you discuss any questions you have with your health care provider. Normal [facility] ED Patient Summaryon 018 ED Patient Summary [address] [address] Patient Discharge Instructions Person Information Name: CHINA OLSEN Age: 47 Years Arrival Date: 06/11/2018 5:58 AM Discharge Diagnosis: 1:Benign positional vertigo Primary Care Physician: Michelle Lopez DO Provider Information Primary Provider: Wilson Mendenhall MD Advanced Instructor Of Spanish:None The exam and treatment you received in the Emergency Department were for an urgent problem and are not intended as complete care. It is important that you follow up with a doctor, nurse practitioner, or physician?s billing and accounting staff assistant for ongoing care. If your symptoms become worse or you do not improve as expected and you are unable to reach your usual health care provider, you should return to the Emergency Department. We are available 24 hours a day. CHINA OLSEN Nahid has been given the following list of patient education materials, prescriptions and follow-up instructions: Follow-up Instructions: With: Address: When: Michelle Lopez DO [facility] [address] [facility] [address] [place], [place] [id number] Within 3 to 5 days In the event that this physician does not participate in your insurance network, please consult with your insurance company to find a nearby participating provider. Patient Education Materials: Vertigo, Cmcy-ue-Qcwd A MESSAGE TO ALL PATIENTS REGARDING OPIOIDS PRESCRIPTION OPIOIDS: WHAT YOU NEED TO KNOW Prescription opioids can be used to help relieve leqgtyxn-xz-lhzaeh pain and are often prescribed following a surgery or injury, or for certain health conditions. These medications can be an important part of the treatment but also come with serious risks. It is important to work with your healthcare provider to make sure you are getting the safest, most effective care. WHAT ARE THE RISKS AND SIDE EFFECTS OF OPIOID USE? Prescription opioids carry serious risks of addiction and overdose, especially with prolonged use. An opioid overdose, often marked by slowed breathing, can cause sudden . The use of prescription opioids can have a number of side effects as well, even when taken as directed: ? Tolerance?meaning you might need to take more of the medication for the same pain relief ? Physical dependence?meaning you have symptoms of withdrawal when a medication is stopped ? Increased sensitivity to pain ? Constipation ? Nausea, vomiting, and dry mouth ? Sleepiness and dizziness ? Confusion ? Depression ? Low levels of testosterone that can result in lower sex drive, energy, and strength ? Itching and sweating RISKS ARE GREATER WITH: ? History of drug misuse, substance use disorder, or overdose ? Mental health conditions (such as depression or anxiety) ? Sleep apnea ? Older age (65 years and older) ? Avoid alcohol while taking prescription opioids. Also, unless specifically advised by your health care provider, medications to avoid include: ? Benzodiazepines (such as Xanax or Valium) ? Muscle relaxants (such as Soma or Flexeril) ? Hypnotics (such as Ambien or Lunesta) ? Other prescription opioids KNOW YOUR OPTIONS Talk to your health care provider about ways to manage your pain that don?t involve prescription opioids. Some of these options may actually work better and have fewer risks and side effects. Options may include: ? Pain relievers such as acetaminophen, ibuprofen, and naproxen ? Some medication that are also used for depression or seizures ? Physical therapy and exercise ? Cognitive behavioral therapy, a psychological, goal-directed approach, in which patients learn how to modify physical, behavioral, and emotional triggers of pain and stress. IF YOU ARE PRESCRIBED OPIOIDS FOR PAIN: ? Never take opioids in greater amounts or more often than prescribed. ? Follow up with your primary health care provider. o Work together to create a plan on how to manage your pain. o Talk about ways to help manage your pain that don?t involve prescription opioids. o Talk about any and all concerns and side effects. ? Help prevent misuse and abuse o Never sell or share prescription opioids. o Never use another person?s prescription opioids. ? Store prescription opioids in a secure place and out of reach of others (this may include visitors, children, friends, and family). ? Safely dispose of unused prescription opioids: Find your community drug take-back program or your pharmacy mail-back program, or flush them down the toilet, following guidance from the Food and Drug Administration (www.fda.gov/Drugs/R esourcesForYou). ? Visit www.cdc.gov/drugover dose to learn about the risks of opioids abuse and overdose. ? If you believe you may be struggling with addiction, tell your health care provider and ask for guidance or call [facility]?S National Helpline at 3-422-271-DHTB. e Source: US Department of Health and Human Services/Center for Disease Control & Prevention [facility] Medications Given: Medication Dose Route No medications found. Medication Information: New Medications Printed Prescriptions meclizine (Antivert 25 mg Tab) 1 Tabs By Mouth 3 times a day as needed for dizziness. Refills: 0. Medications to Continue with No Changes Other Medications naproxen By Mouth. Comment: Pharmacy Information: Thank you for choosing [facility] Patient Education Materials: Vertigo Vertigo means you feel like you are moving when you are not. Vertigo can make you feel like things around you are moving when they are not. This problem often goes away on its own. HOME CARE ? Follow your doctor's instructions. ? Avoid driving. ? Avoid using heavy machinery. ? Avoid doing any activity that could be dangerous if you have a vertigo attack. ? Tell your doctor if a medicine seems to cause your vertigo. GET HELP RIGHT AWAY IF: ? Your medicines do not help or make you feel worse. ? You have trouble talking or walking. ? You feel weak or have trouble using your arms, hands, or legs. ? You have bad headaches. ? You keep feeling sick to your stomach (nauseous) or throwing up (vomiting). ? Your vision changes. ? A family member notices changes in your behavior. ? Your problems get worse. MAKE SURE YOU: ? Understand these instructions. ? Will watch your condition. ? Will get help right away if you are not doing well or get worse. Document Released: 06/16/2009 Document Revised: 11/29/2012 Document Reviewed: 03/25/2012 ExitCare? Patient Information ?2014 Lessons Only. This information is not intended to replace advice given to you by your health care provider. Make sure you discuss any questions you have with your health care provider. PRETTY Minor CHRISTOPHER D , have received the following patient education materials/instructio ns and have verbalized understanding: Patient Education Materials: Vertigo, Xpud-zf-Gmpc Follow-up Instructions: With: Address: When: Michelle Lopez DO [address], [address] [place] [address] Within 3 to 5 days Prescriptions: [meclizine (Antivert 25 mg Tab)] Patient Signature Date Clinician/Nurse Signature Date 06/11/18 08:09:10 Normal [facility] Magnesiumon 06-11-2018 Magnesium mass conc 2.0 mg/dL Normal 1.3-2.4 [facility] Comment on above: Performed By: #### 2 [id number], [id number], [id number], [id number], [id number], [id number], [id number] #### [facility] [address] [place] [address] Progress Note-Nurseon 2017 Protein mass conc Report given to DONALD Epps who will now be primary RN for this pt. Normal [facility] Protein mass conc Pt back from CT scan, waiting on test results. Normal [facility] Protein mass conc Pt to CT now. Normal [facility] Troponin 0 Hr.on 06-11-2018 Troponin I.cardiac mass conc ng/mL Normal <=0.03 [facility] Comment on above: Result Comment: New Troponin Assay 02/02/14 [facility] [place] Cutoff value > or = 0.03 ng/mL in conjunction with clinical conditions of myocardial infarction. (www.escardio.org/guidelines) Performed By: #### 2 [id number], [id number], 5063500, [id number], 7370176, [id number], [id number] #### [facility] [address] [place] [address] XR Chest 2 Viewson 8 XR Chest 2 Views Exam Date/Time: 06/11/2018 07:02 EDT Reason for Exam: Chest pain Report IMPRESSION: STREAKY ATELECTATIC OR FIBROTIC CHANGES AT BOTH LUNG BASES. CLINICAL HISTORY: Chest pain. Smoker. COMMENT: The heart is normal in size. The mediastinum is unremarkable. There are streaky increased densities at both lung bases, that may be due to atelectasis or fibrosis. No consolidated airspace opacification nor pleural effusion is evident. FINAL REPORT Dictated: 06/11/2018 10:56 am Jan Quiros M.D. Signed (Electronic Signature): 06/11/2018 10:56 am Signed by: Jan Quiros M.D. Transcribed by: ARTIE Technologist: LMS Normal [facility] eGFRon 06-11-2018 GFR/1.73 sq M predicted among blacks MDRD vol rate/area (S/P/Bld) mL/min/{1.73_m2} Normal >=59 [facility] Comment on above: Order Comment: Order added by Discern Expert. Result Comment: eGFR is race adjusted. AA=. Performed By: #### 2 [id number], [id number], 7826081, [id number], 3588534, [id number], [id number] #### [facility] [address] [place] [address] GFR/1.73 sq M predicted among non-blacks MDRD vol rate/area (S/P/Bld) mL/min/{1.73_m2} Normal >=59 [facility] Comment on above: Order Comment: Order added by Discern Expert. Result Comment: Handling Tech kel kidney disease could be indicated at eGFR's of less than 60 mL/min/1.73m2. Kidney failure is indicated at less than 15 mL/min/1.73m2. Performed By: #### 2 [id number], [id number], [id number], [id number], [id number], [id number], [id number] #### [facility] [address] [place] [address] Vital Signs Date Time Vital Sign Value Performing Clinician Facility 09-02-2022 10:00-0500 Body height 187.96 cm Maryan Charles Other [facility] Other 09-02-2022 10:00-0500 Body mass index (BMI) [Ratio] 40.44 kg/m2 Maryan Charles Other [facility] Other 09-02-2022 10:00-0500 Body temperature 97.7 [degF] Maryan Charles Other [facility] Other 09-02-2022 10:00-0500 Body weight 142.88 kg Maryan Charles Other [facility] Other 09-02-2022 10:00-0500 Respiratory rate 18 /min Maryan Charles Other [facility] Other 09-02-2022 10:00-0500 SaO2% (BldA) [Mass fraction] 97 % Maryan Charles Other [facility] Other Encounters Encounter Date Encounter Type Care Provider Facility Start: 03-15-2024 End: 03-15-2024 [facility] Start: 03-15-2024 End: 03-15-2024 Encounter for other preprocedural examination TAI SCHMITT [facility] Start: 03-03-2024 End: 03-03-2024 ambulatory MD Shaikh Pinedo Work Phone: [facility] Work Phone: Start: 03-03-2024 End: 03-03-2024 Departed Referred MD Shaikh Pinedo Work Phone: [facility] Work Phone: Start: 02-16-2024 End: 02-16-2024 ambulatory LEN ENG Not Available Start: 02-04-2024 End: 02-04-2024 ambulatory MONTERO FAWWANahid Not Available Start: 01-13-2024 End: 01-13-2024 ambulatory EDY DOCKERY Not Available Start: 01-06-2024 End: 01-06-2024 ambulatory MONTERO FAWWAD Not Available Start: 12-01-2022 End: 12-02-2022 ambulatory MONTERO H FAWWAD Facility:[facility] Start: 10-09-2022 ambulatory CARLITOS ALFARO Facility:[facility] 1 Start: 09-02-2022 End: 09-02-2022 ambulatory Maryan Charles Other [facility] Other Start: 09-02-2022 Office outpatient vi sit 25 minutes Maryan Charles [facility] Start: 04-12-2022 End: 04-12-2022 ambulatory MONTERO H FAWWAD Facility:[facility] Start: 03-21-2022 ambulatory CARLITOS ALFARO Facility:[facility] Start: 01-06-2022 End: 01-07-2022 ambulatory MONTERO H FAWWAD Facility:[facility] Start: 10-18-2021 End: 10-24-2021 ambulatory TRAV JONES Facility:[facility] Start: 09-21-2018 End: 09-21-2018 Emergency department patient visit Mallika Mehta Facility:[facility] [place] Start: 06-11-2018 End: 06-11-2018 Emergency department patient visit Wilson Mendenhall Facility:[facility] [place] Immunizations Immunization Date Immunization Notes Care Provider Fa cility 06-14-2022 COVID-19 mRNA Bivale nt Booster (Pfizer) MD Shaikh Pinedo Work Phone: [facility] 09-03-2021 COVID-19 mRNA, Comirnaty (Pfizer) MD Shaikh Pinedo Work Phone: [facility] 02-13-2021 COVID-19 mRNA, Comirnaty (Pfizer) MD Shaikh Pinedo Work Phone: [facility] 01-23-2021 COVID-19 mRNA, Comirnatflo (Pfizer) MD Shaikh Pinedo Work Phone: [facility] Payers Date Payer Category Payer Medicare [id number] 2018 Unknown [id number] 2018 Medicaid [id number] 1970 Unknown [id number] 2.16.84 [id number] 1970 Unknown [id number] 2.16.84 [id number] 1970 Unknown [id number] 2.16.8 40.1.147930.3.579.2.647 1970 Unknown [id number] 2.16.84 0.1.397542.3.579.2.593 1970 Unknown [id number] 2.16.84 0.1.156067.3.579.2.593 1969 Unknown [id number] 2.16.84 0.1.011569.3.579.2.593 1969 Unknown [id number] 2.16.84 0.1.057748.3.579.2.593 1969 Unknown [id number] 2.16.84 0.1.196308.3.579.2.593 1969 Unknown [id number] 2.16.84 0.1.042555.3.579.2.593 1969 Unknown [id number] 2.16.84 0.1.382575.3.579.2.1259 1969 Unknown [id number] 2.16.84 0.1.591367.3.579.2.1259 1969 Unknown [id number] 2.16.84 0.1.508353.3.579.2.1259 1969 Unknown [id number] 2.16.84 0.1.013390.3.579.2.1259 1960 Private Health Insurance [id number] 1960 Self-pay Unknown O [id number] Unknown [id number] 2.16.8 [id number] Social History Date Type Detail Facility Unknown if ever smoked [facility] Other Sex Assigned At Sex Assigned At Bir th [facility] Other Start: 05-02-2013 Tobacco smoking status NHIS Smoker (finding) [facility] Start: 1970 Sex Assigned At Male F [facility] Progress note 03-15-2024 Note Date & Type Note Facility 03-15-2024 Note Patient here for 2 y ear follow up CAD. He also needs surgery clearance for cyst removal on his scalp. Patient states they're putting him under general anesthesia for this. He denies chest pain. Says his BARKER is the same as it was at last apt in January 2022. Does get intermittent palpitations. No recent labs/imaging. Review of Systems Cardiovascular: Positive for dyspnea on exertion and palpitations. All other systems reviewed and are negative. [facility] Progress note 03-15-2024 Note Date & Type Note Facility 03-15-2024 Note Cardiovascular Medic [facility] SUBJECTIVE Chief Complaint Patient presents with Pre-op Exam Coronary Artery Disease Hypertension Hyperlipidemia China Olsen is a 53 y.o. male here for follow-up. HPI PMHx: CAD (myocardial bridging of LAD, otherwise Mild nonobstructive CAD (20%) in LAD) Patient here for 2 year follow up CAD. He also needs surgery clearance for cyst removal on his scalp. Patient states they're putting him under general anesthesia for this. He denies chest pain. Says his BARKER is the same as it was at last apt in January 2022. Does get intermittent palpitations. No recent labs/imaging. He denies any changes since last seen. He has BARKER with over exertion. He feels like this attributed to his asthma and weight. He has occasional palpitations, this is not new for him. Not currently exercising due to knee trouble. He hasn't been able to bike ride as he hasn't been able to wear his helmet due to the cyst on his scalp. Denies CP, orthopnea, PND, LE edema, dizziness/LH, syncope. Patient Active Problem List Diagnosis Allergic rhinitis Blurred vision, bilateral Cardiovascular stress test abnormal Chest pain on exertion Dyspnea on exertion Lesion of skin of scalp Mild persistent asthma without complication KOLTON (obstructive sleep apnea) Other hyperlipidemia Primary hypertension Tobacco abuse Tobacco dependence syndrome Past Medical History: Diagnosis Date Coronary artery disease Hyperlipidemia Hypertension Sleep apnea No family history on file. Social History Tobacco Use Smoking status: Every Day Packs/day: .25 Types: Cigarettes Smokeless tobacco: Never No Known Allergies ROS Cardiovascular: Positive for dyspnea on exertion and palpitations. All other systems reviewed and are negative. OBJECTIVE Visit Vitals BP 126/84 (BP Location: Right arm, Patient Position: Sitting) Pulse 80 Ht 1.88 m (6' 2 ) Wt (!) 138 kg (305 lb) SpO2 93% BMI 39.16 kg/m??? Smoking Status Every Day BSA 2.68 m??? Medications: Current Outpatient Medications: aspirin 81 mg EC tablet, Take 81 mg by mouth in the morning., Disp: , Rfl: atorvastatin (Lipitor) 40 mg tablet, Take 1 tablet (40 mg) by mouth in the morning., Disp: 90 tablet, Rfl: 0 budesonide-formoteroL (Symbicort) 160-4.5 mcg/actuation inhaler, Inhale 2 puffs twice a day., Disp: , Rfl: metoprolol succinate XL (Toprol-XL) 25 mg 24 hr tablet, Take 1 tablet (25 mg) by mouth in the morning., Disp: 90 tablet, Rfl: 3 Physical Exam Constitutional: Appearance: Normal appearance. He is obese. HENT: Head: Normocephalic and atraumatic. Right Ear: External ear normal. Left Ear: External ear normal. Eyes: Extraocular Movements: Extraocular movements intact. Pupils: Pupils are equal, round, and reactive to light. Neck: Vascular: No carotid bruit. Cardiovascular: Rate and Rhythm: Normal rate and regular rhythm. Pulses: Normal pulses. Heart sounds: Normal heart sounds. Pulmonary: Effort: Pulmonary effort is normal. Breath sounds: Normal breath sounds. Abdominal: General: Bowel sounds are normal. Palpations: Abdomen is soft. Musculoskeletal: General: Normal range of motion. Cervical back: Neck supple. Right lower leg: No edema. Left lower leg: No edema. Skin: General: Skin is warm and dry. Neurological: General: No focal deficit present. Mental Status: He is alert and oriented to person, place, and time. Psychiatric: Mood and Affect: Mood normal. Behavior: Behavior normal. Thought Content: Thought content normal. Judgment: Judgment normal. Labs: Legacy Encounter on 11/28/2021 Component Date Value Ref Range Status Ventricular Rate 11/28/2021 75 BPM Final Atrial Rate 11/28/2021 75 BPM Final LA Interval 11/28/2021 144 ms Final QRS DURATION 11/28/2021 84 ms Final QT Interval 11/28/2021 374 ms Final QTC CALCULATION(BAZETT) 11/28/2021 417 ms Final P [place] 11/28/2021 21 degrees Final R-[place] 11/28/2021 -3 degrees Final T Wave [place] 11/28/2021 8 degrees Final Diagnosis 11/28/2021 Final Value:Normal sinus rhythm Inferior infarct , age undetermined Abnormal ECG No previous ECGs available Confirmed by Sonja GIL, L.S. (2) on 11/28/2021 1:56:48 PM No results found for: EXTCMP , BMPR1A , CBCDIF , BNP , LASAP , RED 12/01/2022 AST 33, ALT 52 10/18/2021 Chol 173, HDL 48, trig 127, LDL 99 Testing/Procedures: 11/28/21 CVl PROCEDURES PERFORMED: 1. Coronary angiography. 2. Left heart catheterization. FINAL IMPRESSIONS: 1. 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 2. 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 3. Otherwise, patent coronary arteries. RECOMMENDATIONS: 1. Aspirin 81 mg lifelong. 2. Aggressive risk factor modification. 3. Optimization of medical management for CAD: beta beth, aspirin, high intensity statin. 4. Initiation of beta beth for myocardial bridging. 5. Avoid nitra (more content not included)... [facility] Evaluation note 09-02-2022 Note Date & Type Note Facility 09-02-2022 Evaluation note Encounter Date Diagnosis Assessment Notes Aug, Contact with and (suspected) exposure to other viral communicable diseases (ICD-10 - Z20.828) Aug, Acute non-recurrent maxillary sinusitis (ICD-10 - J01.00) Advised patient that rapid COVID/Influenza A/B tests were negative today in office. Discussed diagnosis with patient today. Will treat today with antibiotic based on physical exam and duration of symptoms. Reviewed allergies and recent antibiotic use with patient. Patient states that a z-don and steroid always work well for him - will send advised to use as directed. Encouraged supportive care as directed today. Push fluids/rest, nasal saline washes as directed, may use Tylenol or Motrin as needed for discomfort, OTC plain Mucinex. Patient to follow up with PCP or UC for any new or worsening symptoms. Immediate eval if SOB, wheezing, difficulty breathing, or other concerning symptoms. Patient verbalizes understanding and is agreeable to treatment plan [facility] Other Evaluation note Note Date & Type Note Facility Evaluation note No assessment information availa [facility] Work Phone: History general Narrative - Reported Note Date & Type Note Facility History general Narrative - Reported Type Medical History torn meniscus-left Medical History htn Surgical History right hand surgery Hospitalization History right hand surgery [facility] Other Summary Purpose Family History No Family History Records Found Relationship Condition Age at Onset Recorded Date/T marquis father Unknown Advance Directives No Advanced Directives Records Found Advance Directive Response Recorded Date/ Time Advance Directives No August 8:31am Chief Complaint and Reason for Visit Chief Complaint Scalp Cyst Additional Source Comments (unrecognized sect ion and content) No Status Records FoundNo Status Records FoundNo Status Records FoundNo Status Records FoundNo Status Records FoundNo Status Records Found INFORMATION SOURCE (unrecogn ized section and content) DATE CREATED AUTHOR 11/09/2018 [facility] DATE CREATED AUTHOR AUTHOR'S ORGANIZ ATION 12/18/2021 [facility] DATE CREATED AUTHOR AUTHOR'S ORGANIZ ATION 12/31/2022 [facility] DATE CREATED AUTHOR AUTHOR'S ORGANIZ ATION 02/17/2024 [facility] EPIC DATE CREATED AUTHOR AUTHOR'S ORGANIZ ATION 03/16/2024 [facility] DATE CREATED AUTHOR AUTHOR'S ORGANIZ ATION 05/04/2024 [facility] REASON FOR VISIT (unrecogniz ed section and content) WHITE TRUCK, SINUS PRESSURE, H/A, DRAINAGE Care Teams (unrecognized sec tion and content) Team Status: Active Member Role Status Dates Shaikh Cb MD Primary Care Provider Active Team Status: Inactive Member Role Status Dates Len Eng DO Attending Provider Active Start : March 03, 2024 End: March 03, 2024 Shaikh Cb MD Primary Care Provider Active Start: March 03, 2024 End: March 03, 2024 Goals (unrecognized section and content) Goals may be documented in a n alternate section FOR RECORDS PERTAINING TO PATIENTS WHO ARE OR HAVE BEEN ENROLLED IN A CHEMICAL DEPENDENCY/SUBSTANCEABUSE PROGRAM, SOME INFORMATION MAY BE OMITTED. This clinical summary was aggregated from multiple sources. Caution should be exercised in using it in the provision of clinical care. This summary normalizes information from multiple sources, and as a consequence, information in this document may materially change the coding, format and clinical context of patient data. In addition, data may be omitted in some cases. CLINICAL DECISIONS SHOULD BE BASED ON THE PRIMARY CLINICAL RECORDS. [employer] provides no warranty or guarantee of the accuracy or completeness of information in this document.
[2024-05-19 10:43] LABS: Estimated Average Glucose 123 mg/dL; Glycohemoglobin A1C 5.9 % (4.5-6.2)
[2024-05-19 10:46] LABS: Basophils Absolute Auto 0.1 10^3/uL (0.0-0.1); Basophils Percent Auto 0.9 % (0.2-2.0); Eosinophils Absolute Auto 0.2 10^3/uL (0.0-0.7); Eosinophils Percent Auto 2.3 % (0.9-7.0); Hematocrit 46.6 % (42.0-54.0); Hemoglobin 15.5 g/dL (14.0-18.0); Immature Granulocytes Abs Auto 0.04 10^3/uL (0.00-0.03); Immature Granulocytes Pct Auto 0.5 % (0.0-0.5); Lymphocytes Absolute Auto 1.6 10^3/uL (1.2-3.8); Lymphocytes Percent Auto 20.9 % (20.5-60.0); Mean Corpuscular HGB Conc 33.3 g/dL (29.9-35.2); Mean Corpuscular Hemoglobin 29.9 pg (25.9-34.0); Mean Platelet Volume 11.4 fL (9.5-13.5); Monocytes Absolute Auto 0.5 10^3/uL (0.3-0.8); Monocytes Percent Auto 6.1 % (1.7-12.0); Neutrophils Absolute Auto 5.3 10^3/uL (1.4-6.5); Neutrophils Percent Auto 69.3 % (43.0-75.0); Platelet Count 229 10^3/uL (150-450); Red Blood Count 5.18 10^6/uL (4.70-6.10); Red Cell Distribution Width 12.8 % (11.0-15.0); White Blood Count 7.7 10^3/uL (4.0-11.0)
[2024-05-19 11:07] LABS: Erythrocyte Sedimentation Rate 41 mm/hr (<=20)
[2024-05-19 11:31] LABS: Alanine Aminotransferase 46 U/L (16-63); Albumin Level 3.9 g/dL (3.4-5.0); Alkaline Phosphatase 107 U/L (46-116); Aspartate Amino Transferase 26 U/L (15-37); Bilirubin Total 0.7 mg/dL (0.2-1.0); C Reactive Protein <0.50 mg/dL (<=0.50); Calcium 9.1 mg/dL (8.5-10.1); Chloride 105 mmol/L (98-107); Estimated GFR (African America >60 (>=60); Estimated GFR (Non-African Ame >60 (>=60); Globulin 3.9 g/dL; Glucose 120 mg/dL (74-106); Potassium 4.2 mmol/L (3.5-5.1); Sodium 140 mmol/L (136-145); Total Protein 7.8 g/dL (6.4-8.2)
[2024-05-19 11:38] LABS: Anion Gap 14.8; Carbon Dioxide 24.4 mmol/L (21.0-32.0)
[2024-05-19 15:06] LABS: Creatinine Urine Random 163.28 mg/dL (20.00-300.00); Microalbumin Urine Random <1.3 mg/dL (<=30.0)
[2024-05-20 13:09] LABS: Rheumatoid Factor (RF) <10.0 IU/mL (<14.0)
[2024-05-20 14:10] LABS: ANA Direct Negative (Negative)
== END 2024-05-19 10:01 | disposition home or self-care (01) ==
DX: R53.83 Other fatigue (principal); I10 Essential (primary) hypertension; M79.10 Myalgia, unspecified site; M25.50 Pain in unspecified joint; M25.40 Effusion, unspecified joint; H53.8 Other visual disturbances; R42 Dizziness and giddiness
CPT/HCPCS: 36415; 80053; 82043; 82570; 83036; 85025; 85652; 86038; 86140; 86431

== ENCOUNTER 2024-07-18 08:52 | Outpatient (OUT) | payer MEDICAID, SELFPAY ==
--- NOTE | 2024-07-18 09:02 | MR_ITS ---
The [address] [address] Patient Name: CHINA OLSEN MRN: [id number] date: 1970 Sex: M Assigned Patient Location: MRI Current Patient Location: MRI Accession/Order Number: [id number] Exam Date: 07/18/2024 09:10 Report Date: 07/18/2024 10:57 At the request of: JOSE JOY Procedure: MR head/brain wo con MR head/brain wo con, 07/18/2024 9:10 AM EDT INDICATION: Blurred Vision , Fatigue, Dizziness COMPARISON: There is no appropriate prior study for comparison. TECHNIQUE: Multiplanar, multisequential MRI images of brain were obtained without injection of contrast. FINDINGS: The cerebral sulci as well as ventricular system are appropriate for age. There is no restricted diffusion. Few hyperintensities on T2 and FLAIR images in the paris radiata and centrum semiovale with sparing of U fibers are nonspecific, statistically most likely consistent with minimal microvascular ischemic changes. There is no intracranial mass, mass effect, midline shift, intra or extra-axial fluid collection or large hemorrhage. Normal flow-void in the intracranial vessels is noted. Scattered mucosal thickening within the maxillary sinuses. Retention cysts within the left maxillary and right sphenoid sinuses. The visualized portions of orbits, mastoid air cells are unremarkable. Incidental note of the 2.8 x 2.4 cm lesion in the subcutaneous frontal region with T1 and T2 hypointensity likely fibrotic. MR/MR head/brain wo con IMPRESSION: No acute intracranial process is noted. Nonspecific subcutaneous nodule in the frontal region likely fibrotic. Clinical correlation is advised. Electronically authenticated by: SONYA SALMON Date: 07/18/2024 10:57
--- OUTSIDE RECORDS SUMMARY | 2024-07-18 09:09 | XMS_ITS | CCD ---
Author Organization [facility] Care Team Providers Care Principal Librarian Name Role Phone Wilson Mendenhall Admitting Unavailable Michelle Lopez Primary Care Unavailable Lam Nice Attending Unavailable Mallika Mehta Admitting Unavailable Mallika Mehta Attending Unavailable Gómez Cohn Primary Care Unavailable [...] Unavailable FAWWAD, MONTERO H Primary Care Unavailable TAI SCHMITT Attending Unavailable DO Len Eng Attending Provider MD Simón Pinedo Primary Care Provider Shaikh Pinedo Primary Care Unavailable Len Eng Attending Unavailable Len Eng Admitting Unavailable SHAIKH PINEDO Attending Unavailable EDY DOCKERY Attending Unavailable SHAIKH PINEDO Referring Unavailable SHAIKH PINEDO Attending Unavailable LEN ENG Attending Unavailable SHAIKH PINEDO Referring Unavailable JOSE JOY Attending JOSE Kang Referring UnavailJOSE Saldana Attending Unavailabl e Allergies Allergy Classification Reported Allergen(s) Allergy Type Date of Onset Reaction(s) Facility (1 source) No Known Medication Allergies; Translations: [No Known Medication Allergies] Propensity to adverse reactions (disorder) [facility] Repository Medications Current Medications Medication Drug Class(es) Dates Sig (Normalized) Sig (Original) [id number] 200 actuat albuterol 0.09 mg/actuat metered dose [...] disease (6 sources) Atherosclerotic heart disease of [place] coronary artery without angina pectoris; Translations: [ASHD TETLIN CA W/O ANGINA PECTORIS] Onset: 12-01-2022 Chronic [...] Onset: 04-12-2022 Episodic Other aftercare (1 source) prison (current) use of aspirin; Translations: [HALF-WAY CURRENT USE OF ASPIRIN] Onset: 04-21-2022 Episodic Other aftercare (1 source) Other senior care (current) drug therapy; Translations: [OTH SUPERVISOR PRESSING DEPARTMENT CURRENT DRUG THERAPY] Onset: 04-21-2022 Episodic Results Test Name Value Interpretation Reference Range Facility [facility] US CAROTID ARTERY DUPLE X BILATERALon 05-25-2024 [facility] US CAROTID ARTERY DUPLEX BILATERAL EXAM: Carotid Ultrasound: REASON FOR EXAM: Dizziness, HTN, HLD. COMPARISON: None. TECHNIQUE: Real-time ultrasonographic analysis with color flow Doppler sequencing and Doppler spectral analysis provided for the carotid systems. FINDINGS: Peak systolic velocities are expressed in centimeters per second. Right carotid system: Common carotid artery: 67/20 Carotid bulb: 52/13 Internal carotid artery: Prox: 51/20 Mid: 44/17 Dist: 50/24 External carotid artery: 132 Right vertebral artery: 37 Antegrade flow present in the vertebral artery. ICA to CCA ratio: 0.76 Real-time ultrasound imaging: No significant plaquing. Left carotid system: Common carotid artery: 57/18 Carotid bulb: 53/16 Internal carotid artery: Prox: 59/21 Mid: 40/18 Dist: 48/19 External carotid artery: 84 Left vertebral artery: 50 Antegrade flow present in the vertebral artery. ICA to CCA ratio: 1.04 Real-time ultrasound imaging: No significant plaquing. IMPRESSION: No hemodynamically significant stenosis is identified in either carotid system. *This report is generated using voice recognition reporting (Coupay). On occasion [employer] erroneously drops words from the report or replaces the spoken word with similar sounding words. Please call with any questions/concerns regarding this report.* Dictated and transcribed 05/25/2024/nik This report has been electronically signed and approved by the interpreting radiologist. Electronically Signed Narendra Daley M.D. 2024-05-25 15:18:27 Normal Not Available Office Visiton 03-15-2024 Follow-up visit [id number] China Olsen 1970 M Date Provider Department Center 03/15/2024 Maryjane-TAI SCHMITT [facility] No family history on file Level of Service:54881 HI OFFICE/OUTPATIENT ESTABLISHED MOD MDM 30 MIN Reason for Visit and Comments: Pre-op Exam [222059] Coronary Artery Disease [187] Hypertension [223343] Hyperlipidemia [182] Normal [facility] Orders Onlyon 08-03-2023 Orders Only [id number] China Olsen 1970 M Date Provider Department Center 08/03/2023 Kishor-LUCY AGUIAR [facility] No family history on file Normal [facility] GLYCOHEMOGLOBIN A1Con 2022 ADA RECOMMENDATION SEE BELOW Normal [facility] Comment on above: Result Comment: ADA RECOMMENDED LIMIT 4.0 - 6.0 ADA THERAPEUTIC TARGET < 7.0 ACTION SUGGESTED > 7.0 Performed By: #### A 1C #### [facility] [address] [address] [address] Summer Rasmussen Glucose [Mass/Vol] 123 mg/dL Normal [facility] Comment on above: Performed By: #### A 1C #### [facility] [address] [address] [address] Summer Rasmussen HbA1c (Bld) [Mass fraction] 5.9 % Normal 4.5-6.2 [facility] Comment on above: Performed By: #### A 1C #### [facility] [address] [place] [address] Dr. Summer Rasmussen LIPID PROFILEon 12-01-2022 CHOL-HDL RATIO NORM SEE BELOW Normal [facility] Comment on above: Result Comment: 3.3 - 4.4 LOW RISK 4.4 - 7.1 AVERAGE RISK 7.1 - 11.0 MODERATE RISK >11.0 HIGH RISK Performed By: #### L IPID #### [facility] [address] [place] [address] Dr. Summer Rasmussen Cholesterol [Mass/Vol] 136 mg/dL Normal <=200 [facility] Comment on above: Performed By: #### L IPID #### [facility] [address] [place] [address] Dr. Summer Rasmussen Cholesterol in HDL [Mass/Vol] 51 mg/dL Normal 40-60 [facility] Comment on above: Performed By: #### L IPID #### [facility] [address] [place] [address] Dr. Summer Rasmussen Cholesterol in LDL [Mass/Vol] 67.4 mg/dL Normal [facility] Comment on above: Performed By: #### L IPID #### [facility] [address] [address] [address] Summer Rasmussen Cholesterol.total/Ch olesterol in HDL [Mass ratio] 2.7 {ratio} Normal [facility] Comment on above: Performed By: #### L IPID #### [facility] [address] [place] [address] Dr. Summer Rasmussen HDL NORMAL > or = 60 mg/dl - LOW CARDIOVASCULAR RISK <40 mg/dl - HIGH CARDIOVASCULAR RISK Normal [facility] Comment on above: Performed By: #### L IPID #### [facility] [address] [address] [address] Summer Rasmussen LDL CALC NORMAL SEE BELOW Normal [facility] Comment on above: Result Comment: <100 mg/dl OPTIMAL 100 - 129 mg/dl NEAR OR ABOVE OPTIMAL 130 - 159 mg/dl BORDERLINE HIGH 160 - 189 mg/dl HIGH >190 mg/dl VERY HIGH Performed By: #### L IPID #### [facility] [address] [address] [address] Summer Rasmussen Triglyceride [Mass/Vol] 88 mg/dL Normal <=150 [facility] Comment on above: Performed By: #### L IPID #### [facility] [address] [place] [address] Dr. Summer Rasmussen VLDL CALC 17.6 mg/dL Normal [facility] Comment on above: Performed By: #### L IPID #### [facility] [address] [address] [address] Summer Rasmussen LIVER PROFILEon 12-01-2022 Albumin [Mass/Vol] 3.9 g/dL Normal 3.4-5.0 [facility] Comment on above: Performed By: #### L IVER #### [facility] [address] [place] [address] Dr. Summer Rasmussen Albumin/Globulin [Mass ratio] 0.8 {ratio} Normal [facility] Comment on above: Performed By: #### L IVER #### [facility] [address] [place] [address] Dr. Summer Rasmussen ALP [Catalytic activity/Vol] 93 U/L Normal 46-116 [facility] Comment on above: Performed By: #### L IVER #### [facility] [address] [address] [address] Summer Rasmussen ALT [Catalytic activity/Vol] 52 U/L Normal 16-63 [facility] Comment on above: Performed By: #### L IVER #### [facility] [address] [address] [address] Summer Rasmussen AST [Catalytic activity/Vol] 33 U/L Normal 15-37 [facility] Comment on above: Performed By: #### L IVER #### [facility] [address] [address] [address] Summer Rasmussen BILI, CONJUGATED 0.1 mg/dL Normal 0.0-0.2 [facility] Comment on above: Performed By: #### L IVER #### [facility] [address] [address] [address] Summer Rasmussen Bilirubin [Mass/Vol] 0.6 mg/dL Normal 0.2-1.0 [facility] Comment on above: Performed By: #### L IVER #### [facility] [address] [place] [address] Dr. Summer Rasmussen Globulin (S) [Mass/Vol] 4.6 g/dL Normal [facility] Comment on above: Performed By: #### L IVER #### [facility] [address] [address] [address] Summer Rasmussen Protein [Mass/Vol] 8.5 g/dL Critically high 6.4-8.2 [facility] Comment on above: Performed By: #### L IVER #### [facility] [address] [place] [address] Dr. Summer Rasmussen COVID Quick Testingon 2021 Result Negative [employer] [facility] [employer] Other Quick Fluon 09-02-2022 FLUAV Ab CF (S) [Titer] Negative [employer] [facility] [employer] Other FLUBV Ab CF (S) [Titer] Negative [employer] [facility] [employer] Other Cardiovascular Lab Reporton 11-30-2021 Cardiovascular Lab Report [facility] Patient Name: Eduardo Olsenaarti [facility] MR #: [id number] Physician: Li Department of MD Kathy Medicine Service Date: 11/28/2021 Division of Birthdate: 1970 Cardiology Room #: CC Adult Cardiovascular Services [facility] [address] [address] Cardiovascular Laboratory Report PROCEDURES PERFORMED: 1. Coronary [...] P/Li Chavez MD Date Trans: 11/30/2021 06:39 A/ifeanyio [id number] cc: Trav Jones MD [employer] [facility] [address] [place] [address] B [facility] [address] Normal [facility] Coding Summary.on 09-22-2018 Coding Summary. CODING DATE: 09/22/2018 FINAL [facility] DSC STATUS: Home (Routine DC) PAYOR: Medicaid ADMIT [...] Santoyo Date Saved: 09/22/2018 11:16 am Normal [facility] ED Note-Physicianon 09-22-19 ED Note-Physician Basic Information [...] wheezing, 18 gram, Refill(s) 0, [facility] benzonatate, 200 mg = 1 cap(s), [...] Information Gómez Cohn In 3 days 09/24/[address] [place] [address] [facility] (1) Additional Instructions: Patient Education Sinusitis, Adult [...] The case was discussed with: the physician industrial hire sales assistant, Yuri Turner PA-C. Procedures: I directly [...] Diagnostic Results No qualifying data available. Normal [facility] Comment on above: Result Comment: Elec tronically Signed By: Yuri Turner PA-C\.br\Date and Time Signed: 09/21/18 13:43 EST\.br\Electronically Co-Signed By: Mallika Mehta DO\.br\Date and Time Co-Signed: 09/22/18 15:25 EST ED Clinical Summaryon 2018 ED Clinical Summary [address] [address] ED Clinical Summary Person Information Name: CHINA OLSEN [facility] Age: 48 Years : 1970 12:00 AM Sex: Male Language: Marshallese PCP: Gómez Cohn III, DO Marital Status: Single Phone: [phone] Visit Id: Visit Reason: Cough; Sinus Pain/Congestion; [...] 09/21/2018 1:33 PM 09/21/2018 1:33 PM ADDRESS: [address] [place] [address] [address] [place] [id number] PHYS DOC NOTES: MEDICAL INFORMATION: Prescriptions Given: [...] Follow up: With: Address: When: Gómez Cohn [address] [place], [place] [id number] Business (3) In 3 days 09/24/2018 DIAGNOSIS: Acute maxillary sinusitis Normal [facility] ED Patient Education Noteon 09-21-2018 ED Patient [...] Document Reviewed: 09/21/2012 ExitCare? Patient Information ?2015 [employer]. This information is not intended to replace advice given to you by your health care provider. Make sure you discuss any questions you have with your health care provider. Normal [facility] ED Patient Summaryon 019 ED Patient Summary [address] [id number] Patient Discharge Instructions Person Information Name: CHINA OLSEN Age: 48 Years Arrival Date: 09/21/2018 12:06 PM Discharge Diagnosis: Acute maxillary sinusitis Primary Care Physician: Gómez Cohn III, DO Provider Information Primary Provider: Mallika Mehta DO Advanced Outsole Molder:Yuri Turner PA-C The exam and treatment you received in the Emergency Department were for an urgent problem and are not intended as complete care. It is important that you follow up with a doctor, nurse practitioner, or physician?s industrial hire sales assistant for ongoing care. If your symptoms [...] Follow-up Instructions: With: Address: When: Gómez Cohn [address] [place] [address], [facility] [address] Business (1) In 3 days 09/24/2018 In the event that this physician does not participate in your insurance network, please consult with your insurance company to find a nearby participating provider. Patient Education Materials: Sinusitis, Adult A MESSAGE TO ALL PATIENTS REGARDING OPIOIDS PRESCRIPTION OPIOIDS: WHAT YOU NEED TO KNOW Prescription opioids can be used to help relieve zwecuduq-hl-duylgy pain and are often prescribed following a [...] be struggling with addiction, tell your health personal carer and ask for guidance or call [facility]?S National Helpline at 2-884-040-KEYE. k Source: US Department of Health and Human Services/Center for Disease Control & Prevention [facility] Medications Given: Medication Dose Route [...] Comment: Pharmacy Information: Thank you for choosing [facility] Patient Education Materials: Sinusitis Sinusitis is [...] Document Reviewed: 09/21/2012 ExitCare? Patient Information ?2014 [employer]. This information is not intended to replace advice given to you by your health care provider. Make sure you discuss any questions you have with your health care provider. PRETTY Minor CHRISTOPHER D , have received the following patient education materials/instructio ns and have verbalized understanding: Patient Education Materials: Sinusitis, Adult Follow-up Instructions: With: Address: When: Gómez Cohn [address] [place] [address], [facility] [address] Business (9) In 3 days 09/24/2018 Prescriptions: [benzonatate (benzonatate 200 mg oral capsule)] [doxycycline (doxycycline monohydrate 100 mg oral tablet)] [methylPREDNISolone (Medrol Dosepack 4 mg Tab)] Patient Signature Date Clinician/Nurse Signature Date 09/21/18 13:33:41 Normal [facility] Coding Summary.on 06-14-2018 Coding Summary. CODING DATE: 06/14/2018 FINAL [facility] STATUS: Home (Routine DC) PAYOR: Self Pay [employer] DESCRIPTION 8[address] CT and CTA with Contrast Composite 5521 Level 1 Imaging without Contrast 5025 Level 5 Type A ED Visits ADMIT [...] Revised Date Saved: 06/14/2018 08:59 am Normal [facility] Auto Diffon 06-11-2018 Basophils #/vol (Bld) 1.1 % Normal 0.0-2.0 [facility] Comment on above: Order Comment: Order Added by Discern Expert. Performed By: #### 2 440186, 6109328, 7048988, 40131087, 3707047, 70279375, 45369468 #### [facility] [address] [place] [address] Basophils/Leukocytes Auto Pure number fraction (Bld) 0.1 E9/L Normal 0.0-0.2 [facility] Comment on above: Order Comment: Order Added by Discern Expert. Performed By: #### 2 708913, 6346793, 3074622, 59618180, 2873960, 64432766, 68057696 #### [facility] [address] [place] [address] Eosinophils/100 WBC (Bld) 5.2 % Normal 0.0-8.0 [facility] Comment on above: Order Comment: Order Added by Discern Expert. Performed By: #### 2 706269, 2801092, 5704634, 44165201, 8671652, 74676581, 15796492 #### [facility] [address] [place] [address] Eosinophils/Leukocyt es Auto Pure number fraction (Bld) 0.4 E9/L Normal 0.0-0.5 [facility] Comment on above: Order Comment: Order Added by Discern Expert. Performed By: #### 2 529239, 4041278, 2230513, 85894171, 0071313, 73585752, 86881907 #### [facility] [address] [place] [address] Lymphocytes/100 WBC (Bld) 27.8 % Normal 14.0-50.0 [facility] Comment on above: Order Comment: Order Added by Discern Expert. Performed By: #### 2 321272, 9680053, 6561886, 92705487, 9780312, 05776319, 40257713 #### [facility] [address] [place] [address] Lymphocytes/Leukocyt es Auto Pure number fraction (Bld) 2.4 E9/L Normal 1.0-4.0 [facility] Comment on above: Order Comment: Order Added by Discern Expert. Performed By: #### 2 726345, 3560155, 1798416, 00116685, 8811396, 82350267, 82186475 #### [facility] [address] [place] [address] Monocytes/100 WBC (Bld) 8.2 % Normal 4.0-14.0 [facility] Comment on above: Order Comment: Order Added by Discern Expert. Performed By: #### 2 211359, 7609172, 4746916, 73983089, 3903338, 94706486, 36210008 #### [facility] [address] [place] [address] Monocytes/Leukocytes Auto Pure number fraction (Bld) 0.7 E9/L Normal 0.2-1.0 [facility] Comment on above: Order Comment: Order Added by Discern Expert. Performed By: #### 2 859355, 4841466, 7209126, 10985314, 7615159, 73632864, 48925153 #### [facility] [address] [place] [address] Neutrophils/100 WBC (Bld) 57.7 % Normal 36.0-75.0 [facility] Comment on above: Order Comment: Order Added by Discern Expert. Performed By: #### 2 597431, 1440253, 1893299, 28049652, 8188690, 97020652, 40563907 #### [facility] [address] [place] [address] Neutrophils/Leukocyt es Auto Pure number fraction (Bld) 4.9 E9/L Normal 2.0-7.5 [facility] Comment on above: Order Comment: Order Added by Discern Expert. Performed By: #### 2 374725, 7569339, 4207725, 10039645, 0698736, 06674711, 03801397 #### [facility] [address] [place] [address] BNPon 06-11-2018 Natriuretic peptide B mass conc (Bld) 15 pg/mL Normal 5-80 [facility] Comment on above: Performed By: #### 2 267618, 0604266, 8652148, 61777131, 5240817, 88297111, 10450626 #### [facility] [address] [place] [address] CBC w/ Auto Diffon 8 Erythrocyte distribution width Ratio (RBC) 13.5 % Normal 10.9-14.2 [facility] Comment on above: Performed By: #### 2 767236, 8847809, 6554939, 22343517, 0062859, 05129896, 30953765 #### [facility] [address] [place], [place] [address] Hematocrit Volume Fraction (Bld) 43.5 % Normal 37.7-49.0 [facility] Comment on above: Performed By: #### 2 804355, 2759925, 4210586, 38047907, 8163652, 44205803, 65718976 #### [facility] [address] [place] [address] Hemoglobin mass conc (Bld) 15.3 g/dL Normal 13.5-17.5 [facility] Comment on above: Performed By: #### 2 871859, 0242663, 7518744, 57130776, 1151729, 66057206, 01716499 #### [facility] [address] [place] [address] MCH Entitic mass (RBC) 30.6 pg Normal 27.0-34.0 [facility] Comment on above: Performed By: #### 2 216905, 8956735, 5604070, 29539286, 9803517, 71426271, 26953229 #### [facility] [address] [place] [address] MCHC mass conc (RBC) 35.2 g/dL Normal 31.4-39.3 [facility] Comment on above: Performed By: #### 2 573486, 7305266, 6961210, 72053420, 6124198, 16844703, 22599274 #### [facility] [address] [place] [address] MCV Entitic volume (RBC) 87.0 fL Normal 80.0-100.0 [facility] Comment on above: Performed By: #### 2 692008, 2455436, 3227192, 60077040, 1651070, 10505308, 52358429 #### [facility] [address] [place] [address] Platelet mean volume Entitic volume (Bld) 9.2 fL Normal 6.4-10.8 [facility] Comment on above: Performed By: #### 2 690825, 8793226, 6670115, 01738092, 5403633, 56139431, 84882414 #### [facility] [address] [place] [address] Platelets #/vol (Bld) 205.0 E9/L Normal 150.0-500.0 [facility] Comment on above: Performed By: #### 2 523717, 9825413, 8754569, 73005219, 7309762, 51253766, 87763181 #### [facility] [address] [place] [address] RBC #/vol (Bld) 5.0 E12/L Normal 4.3-5.9 [facility] Comment on above: Performed By: #### 2 024780, 6028240, 9592043, 76290723, 8596257, 86786241, 99285471 #### [facility] [address] [place] [address] WBC corrected for nucl RBC Auto #/vol (Bld) 8.5 E9/L Normal 4.0-11.0 [facility] Comment on above: Performed By: #### 2 701924, 2414816, 9467708, 23788159, 9881716, 45309733, 19599078 #### [facility] [address] [place] [address] CMPon 06-11-2018 Albumin mass conc 4.1 g/dL Normal 3.3-5.0 [facility] Comment on above: Performed By: #### 2 730841, 2230231, 0359840, 83943015, 9544385, 69361567, 37124269 #### [facility] [address] [place] [address] Albumin mass conc 1.4 g/dL Normal 1.1-2.2 [facility] Comment on above: Performed By: #### 2 049211, 2925960, 2593184, 77336854, 9606383, 94401922, 14314888 #### [facility] [address] [place] [address] ALP enzyme act/vol 69 Int._Unit/L Normal 21-98 [facility] Comment on above: Performed By: #### 2 722041, 4968661, 1062147, 26605101, 4123125, 04246308, 93018797 #### [facility] [address] [place] [address] ALT No additional P-5'-P enzyme act/vol 39 Int._Unit/L Normal 6-46 [facility] Comment on above: Performed By: #### 2 747064, 2868972, 9774481, 44523955, 7913812, 20668938, 53790151 #### [facility] [address] [place] [address] AST enzyme act/vol 29 Int._Unit/L Normal 5-43 [facility] Comment on above: Performed By: #### 2 269694, 5076725, 8205713, 28829219, 6151194, 11649451, 69901199 #### [facility] [address] [place] [address] Bilirubin mass conc 0.7 mg/dL Normal 0.0-1.1 [facility] Comment on above: Performed By: #### 2 428873, 1267230, 7679914, 93470572, 8448962, 13073805, 79512791 #### [facility] [address] [place] [address] Creatinine mass conc 0.7 mg/dL Normal 0.5-1.3 [facility] Comment on above: Performed By: #### 2 854916, 2486078, 7846774, [id number], 4181930, 00664330, [id number] #### [facility] [address] [place] [address] Globulin mass conc (S) 3.0 g/dL Normal 1.4-4.0 [facility] Comment on above: Performed By: #### 2 384822, 9130911, 8845953, 86087854, 4278511, 36025653, 30605420 #### [facility] [address] [place] [address] Protein mass conc 7.1 g/dL Normal 6.0-7.8 [facility] Comment on above: Performed By: #### 2 533769, 8798282, 4557257, 99667632, 4777974, 40891162, 44184452 #### [facility] [address] [place] [address] Urea nitrogen mass conc 12 mg/dL Normal 5-21 [facility] Comment on above: Performed By: #### 2 466052, 7001652, 6763995, 41874008, 3787027, 71909770, 74296645 #### [facility] [address] [place] [address] Urea nitrogen/Creatinine mass ratio 17 No Units Normal 10-20 [facility] Comment on above: Performed By: #### 2 488171, 4207041, 9677139, 57360174, 7037944, 34649264, 71621681 #### [facility] [address] [place] [address] Anion gap molar conc 9 mmol/L Normal 6-16 [facility] Comment on above: Performed By: #### 2 455858, 5399241, 9436198, 67040838, 8941188, 92428627, 49955715 #### [facility] [address] [place] [address] Calcium mass conc 8.9 mg/dL Normal 8.9-11.1 [facility] Comment on above: Performed By: #### 2 363552, 8875270, 3544634, 47468720, 7350153, 15679409, 64457010 #### [facility] [address] [place] [address] Chloride molar conc 109 mmol/L Normal 101-111 [facility] Comment on above: Performed By: #### 2 591439, 6225778, 3679136, 73144369, 9313623, 98097427, 63712552 #### [facility] [address] [place] [address] CO2 molar conc 25 mmol/L Normal 21-31 [facility] Comment on above: Performed By: #### 2 578979, 6268698, 0042703, 65995707, 9527849, 17802975, 67023053 #### [facility] [address] [place] [address] Glucose mass conc 102 mg/dL Normal 55-199 [facility] Comment on above: Result Comment: If t his glucose result represents a fasting glucose, interpretation should refer to the following reference range: 55-99 mg/dL Performed By: #### 2 466122, 1190378, 7044256, 63761115, 9005073, 73856606, 72598216 #### [facility] [address] [place] [address] Potassium molar conc 3.5 mmol/L Normal 3.5-5.3 [facility] Comment on above: Performed By: #### 2 186150, 4263943, 1828003, 92177122, 7733783, 60593520, 67645851 #### [facility] [address] [place] [address] Sodium molar conc 139 mmol/L Normal 135-145 [facility] Comment on above: Performed By: #### 2 766478, 3739319, 8986597, 17877195, 3488371, 60489903, 39169499 #### [facility] [address] [place] [address] CTA Headon 06-11-2018 CTA Head Exam Date/Time: 06/11/2018 07:01 EDT Reason for Exam: Cerebral vascular disease Report Please see CTA neck report FINAL REPORT Dictated: 06/11/2018 9:45 am Addy Licea MD Signed (Electronic Signature): 06/11/2018 9:45 am Signed by: Addy Licea MD Transcribed by: ARTIE Technologist: RRB Technical Comments GFR (mL/min/1/73m2) na Contrast: Isovue 370 Contrast amount in ml's: 100 Normal [facility] CTA Neckon 06-11-2018 CTA Neck Exam Date/Time: [...] 370 Contrast amount in ml's: 100 Normal [facility] ED Clinical Summaryon 2017 ED Clinical Summary [place] [address] ED Clinical Summary Person Information Name: CHINA OLSEN Rays[facility] Age: 47 Years : 1970 12:00 AM Sex: Male Language: Marshallese PCP: Michelle Lopez DO Marital Status: Single [...] 06/11/2018 8:09 AM 06/11/2018 8:09 AM ADDRESS: [address] [place] [address] [place] [id number] [facility] DOC NOTES: Addendum by Lam Nice MD on June 11, 2018 07:49:04 EDT MEDICAL INFORMATION: Prescriptions Given: Prescription Display meclizine (Antivert 25 mg Tab) 25 mg = 1 tab(s), Oral, TID, PRN for dizziness, # 15 tab(s), Refills(s) 0 Home Meds Display naproxen Oral, Refills(s) 0 PATIENT EDUCATION INFORMATION: Instructions: Vertigo, Jogr-ym-Xaxp Follow up: With: Address: When: Michelle Lopez DO [address] [place] [address] Within 3 to 5 days DIAGNOSIS: 1:Benign positional vertigo Normal [facility] ED Note-Physicianon 06-11-20 18 ED Note-Physician Basic [...] 3 times a day 15 tablets. Normal [facility] Comment on above: Result Comment: Elec tronically [...] 11/29/2012 Document Reviewed: 03/25/2012 ExitCare? Patient Information ?2015 [employer]. This information is not intended to replace advice given to you by your health care provider. Make sure you discuss any questions you have with your health care provider. Normal [facility] ED Patient Summaryon 018 ED Patient Summary [address] [address] Patient Discharge Instructions Person Information Name: CHINA OLSEN Age: 47 Years Arrival Date: 06/11/2018 5:58 AM Discharge Diagnosis: 1:Benign positional vertigo Primary Care Physician: Michelle Lopez DO Provider Information Primary Provider: Abdirashid PATEL, Wilson Sigala Advanced Outsole Molder:None The exam and treatment you received in the Emergency Department were for an urgent problem and are not intended as complete care. It is important that you follow up with a doctor, nurse practitioner, or physician?s industrial hire sales assistant for ongoing care. If your symptoms [...] Instructions: With: Address: When: Michelle Lopez DO [address] [place] [address], [address] [address] Within 3 to 5 days In the event that this physician does not participate in your insurance network, please consult with your insurance company to find a nearby participating provider. Patient Education Materials: Vertigo, Dara-gk-Osen A MESSAGE TO ALL PATIENTS REGARDING OPIOIDS PRESCRIPTION OPIOIDS: WHAT YOU NEED TO KNOW Prescription opioids can be used to help relieve mrjkdxpd-nu-zdpajf pain and are often prescribed following a [...] be struggling with addiction, tell your health personal carer and ask for guidance or call SAMHSA?S National Helpline at 9-926-777-HELP. v Source: [place] Department of Health and Human Services/Center for Disease Control & Prevention [facility] Medications Given: Medication Dose Route No medications found. Medication Information: New Medications Printed Prescriptions meclizine (Antivert 25 mg Tab) 1 Tabs By Mouth 3 times a day as needed for dizziness. Refills: 0. Medications to Continue with No Changes Other Medications naproxen By Mouth. Comment: Pharmacy Information: Thank you for choosing [facility] Patient Education Materials: Vertigo Vertigo means [...] 11/29/2012 Document Reviewed: 03/25/2012 ExitCare? Patient Information ?2015 [employer]. This information is not intended to replace advice given to you by your health care provider. Make sure you discuss any questions you have with your health care provider. IPRETTY CHRISTOPHER D , have received the following patient education materials/instructio ns and have verbalized understanding: Patient Education Materials: Vertigo, Rgtg-es-Airo Follow-up Instructions: With: Address: When: Michlele Lopez DO [address] [place] [address] Within 3 to 5 days Prescriptions: [meclizine (Antivert 25 mg Tab)] Patient Signature Date Clinician/Nurse Signature Date 06/11/18 08:09:10 Normal [facility] Magnesiumon 06-11-2018 Magnesium mass conc 2.0 mg/dL Normal 1.3-2.4 [facility] Comment on above: Performed By: #### 2 688048, 9825923, 0360741, 53812241, 6410211, 20980750, 76889139 #### [facility] [address] [place] [address] Progress Note-Nurseon 2017 Protein mass conc Report given to DONALD Epps who will now be primary RN for this pt. Normal [facility] Protein mass conc Pt back from CT scan, waiting on test results. Normal [facility] Protein mass conc Pt to CT now. Normal [facility] Troponin 0 Hr.on 06-11-2018 Troponin I.cardiac mass conc ng/mL Normal <=0.03 [facility] Comment on above: Result Comment: New Troponin Assay 02/02/14 ZEKE ND Cutoff value > or = 0.03 ng/mL in conjunction with clinical conditions of myocardial infarction. (www.escardio.org/guidelines) Performed By: #### 2 446951, 9938520, 6861297, 75724224, 6173176, 78727381, 17500667 #### [facility] [address] [place] [address] XR Chest 2 Viewson 8 XR Chest [...] Jan Quiros M.D. Transcribed by: ARTIE Technologist: MYLENE Normal [facility] eGFRon 06-11-2018 GFR/1.73 sq M predicted among blacks MDRD vol rate/area (S/P/Bld) mL/min/{1.73_m2} Normal >=59 [facility] Comment on above: Order Comment: Order added by Discern Expert. Result Comment: eGFR is race adjusted. AA=. Performed By: #### 2 377087, 0100395, 9838248, 72985754, 0127676, 72703953, 23329216 #### [facility] [address] [place] [address] GFR/1.73 sq M predicted among non-blacks MDRD vol rate/area (S/P/Bld) mL/min/{1.73_m2} Normal >=59 [facility] Comment on above: Order Comment: Order added by Discern Expert. Result Comment: Manager Administration kel kidney disease could be indicated at eGFR's of less than 60 mL/min/1.73m2. Kidney failure is indicated at less than 15 mL/min/1.73m2. Performed By: #### 2 528414, 9857545, 6440715, 27092286, 4703999, 58715613, 02311582 #### [facility] [address] [place] [address] Vital Signs Date Time Vital Sign Value Performing Clinician Facility 09-02-2022 10:00-0500 Body height 187.96 cm Maryan Charles Other [facility] 09-02-2022 10:00-0500 Body mass index (BMI) [Ratio] 40.44 kg/m2 Maryan Charles Other [facility] 09-02-2022 10:00-0500 Body temperature 97.7 [degF] Maryan Charles Other [facility] Other 09-02-2022 10:00-0500 Body weight 142.88 kg Maryan Charles Other [facility] Other 09-02-2022 10:00-0500 Respiratory rate 18 /min Maryan Charles Other [facility] Other 09-02-2022 10:00-0500 SaO2% (BldA) [Mass fraction] 97 % Maryan Charles Other [facility] Other Encounters Encounter Date Encounter Type Care Provider Facility Start: 06-14-2024 End: 06-14-2024 ambulatory JOSE JOY Not Available Start: 05-25-2024 End: 05-25-2024 ambulatory JOSE JOY Not Available Start: 05-19-2024 End: 05-19-2024 ambulatory JOSE JOY Not Available Start: 03-15-2024 End: 03-15-2024 ambulatory [facility] Start: 03-15-2024 End: 03-15-2024 Encounter for other preprocedural examination [facility] Start: 03-03-2024 End: 03-03-2024 ambulatory MD Shaikh Pineod Work Phone: [facility] Work Phone: Start: 03-03-2024 End: 03-03-2024 Departed Referred MD Shaikh Pinedo Work Phone: [facility] Work Phone: Start: 02-16-2024 End: 02-16-2024 ambulatory LEN ENG Not Available Start: 02-04-2024 End: 02-04-2024 ambulatory SHAIKH CARLBRAULIO Not Available Start: 01-13-2024 End: 01-13-2024 ambulatory EDYCHARISSA WEBBETT Not Available Start: 01-06-2024 End: 01-06-2024 ambulatory SHAIKH CARLLisaWANahid Not Available Start: 12-01-2022 End: 12-02-2022 ambulatory MONTERO Kamlesh FAWWAD Facility:[facility] Start: 10-09-2022 ambulatory CARLITOS ALFARO Facility:[facility] Start: 09-02-2022 End: 09-02-2022 ambulatory Maryan Charles Other [employer] Other Start: 09-02-2022 Office outpatient vi sit 25 minutes Maryan Charles [facility] Start: 04-12-2022 End: 04-12-2022 ambulatory MONTERO H FAWWAD Facility:[facility] Start: 03-21-2022 ambulatory CARLITOSCHICO CROWDERS Facility:[facility] Start: 01-06-2022 End: 01-07-2022 ambulatory MONTERO H FAWWAD Facility:[facility] Start: 10-18-2021 End: 10-24-2021 ambulatory TRAV JONES Facility:[facility] Start: 09-21-2018 End: 09-21-2018 Emergency department patient visit Mallika Mehta Facility:[facility] Start: 06-11-2018 End: 06-11-2018 Emergency department patient visit Wilson Mendenhall Facility:[facility] Immunizations Immunization Date Immunization Notes Care Provider Fa cility 06-14-2022 COVID-19 mRNA Bivale nt Booster (Pfizer) MD Shaikh Pinedo Work Phone: [facility] 09-03-2021 COVID-19 mRNA, Comirnaty (Pfizer) MD Shaikh Pinedo Work Phone: [facility] 02-13-2021 COVID-19 mRNA, Comirnaty (Pfizer) MD Shaikh Pinedo Work Phone: [facility] 01-23-2021 COVID-19 mRNA, Comirnaty (Pfizer) MD Shaikh Pinedo Work Phone: [facility] Payers Date Payer Category Payer Private Health Insurance [id number] 2018 Unknown [id number] 2018 Medicaid [id number] 1970 Unknown [id number] 2.16.84 0.1.934982.3.579.2.727 1970 Unknown [id number] 2.16.84 0.1.477102.3.579.2.727 1970 Unknown [id number] 2.16.8 40.1.786612.3.579.2.647 1970 Unknown [id number] 2.16.84 0.1.775843.3.579.2.593 1970 Unknown [id number] 2.16.84 0.1.862506.3.579.2.593 1970 Unknown [id number] 2.16.84 0.1.517771.3.579.2.593 1970 Unknown [id number] 2.16.84 0.1.931296.3.579.2.593 1970 Unknown [id number] 2.16.84 0.1.659142.3.579.2.593 1970 Unknown [id number] 2.16.84 0.1.782243.3.579.2.593 1970 Unknown [id number] 2.16.84 0.1.829339.3.579.2.1259 1970 Unknown [id number] 2.16.84 0.1.623680.3.579.2.9 1970 Unknown [id number] 2.16.84 0.1.251306.3.579.2.9 1970 Unknown [id number] 2.16.84 0.1.336619.3.579.2.1258 1970 Unknown [id number] 2.16.84 0.1.969175.3.579.2.9 1970 Unknown [id number] 2.16.84 0.1.282181.3.579.2.9 1970 Unknown [id number] 2.16.84 0.1.241570.3.579.2.1259 1960 Private Health Insurance [id number] 1960 Self-pay Unknown O [id number] Unknown [id number] 2.16.8 40.1.066353.3.579.2.531 Social History Date Type Detail Facility Unknown if ever smoked [facility] Other Sex Assigned At Sex Assigned At Bir th [facility] Other Start: 05-02-2013 Tobacco smoking status OHIS Smoker (finding) [facility] Start: 1970 Sex Assigned At Male F [facility] Progress note 03-15-2024 Note Date & Type [...] All other systems reviewed and are negative. [facility] Progress note 03-15-2024 Note Date & Type Note Facility 03-15-2024 Note Cardiovascular Medic [facility] SUBJECTIVE Chief Complaint Patient presents with Pre-op [...] Final Atrial Rate 11/28/2021 75 BPM Final HI Interval 11/28/2021 144 ms Final QRS DURATION 11/28/2021 84 ms Final QT Interval 11/28/2021 374 ms Final QTC CALCULATION(BAZETT) 11/28/2021 417 ms Final P [place] 11/28/2021 21 degrees Final R-[place] 11/28/2021 -3 degrees Final T Wave [place] 11/28/2021 8 degrees Final Diagnosis 11/28/2021 Final [...] 5. Avoid nitra (more content not included)... [facility] Evaluation note 09-02-2022 Note Date & Type [...] understanding and is agreeable to treatment plan [facility] Other Evaluation note Note Date & Type Note Facility [facility] History general Narrative - Reported Note Date & Type Note Facility History general Narrative - Reported Type Medical History torn meniscus-left Medical History htn Surgical History right hand surgery Hospitalization History right hand surgery [facility] Other Summary Purpose Family History No Family [...] section and content) DATE CREATED AUTHOR 11/09/2018 [place] [facility] DATE CREATED AUTHOR AUTHOR'S ORGANIZ ATION 12/18/2021 [facility] DATE CREATED AUTHOR AUTHOR'S ORGANIZ ATION 12/31/2022 [facility] DATE CREATED AUTHOR AUTHOR'S ORGANIZ ATION 03/16/2024 [facility] DATE CREATED AUTHOR AUTHOR'S ORGANIZ ATION 05/04/2024 [facility] DATE CREATED AUTHOR AUTHOR'S ORGANIZ ATION 06/16/2024 [facility] EPIC REASON FOR VISIT (unrecogniz ed section and content) WHITE TRUCK, SINUS PRESSURE, H/A, DRAINAGE Care Teams (unrecognized sec tion and content) Team Status: Active Member Role Status Dates Shaikh Khris MD Primary Care Provider Active Team Status: Inactive Member Role Status Dates Len Eng DO Attending Provider Active Start : March 03, 2024 End: March 03, 2024 Shaikh Khris MD Primary Care Provider Active Start: March [...] BE BASED ON THE PRIMARY CLINICAL RECORDS. [facility] [employer] [facility]. provides no warranty or guarantee of the accuracy or completeness of information in this document.
== END 2024-07-18 08:53 | disposition home or self-care (01) ==
LOC: MRI 08:54
DX: H53.8 Other visual disturbances (principal); R53.83 Other fatigue; R42 Dizziness and giddiness
CPT/HCPCS: 70551